=== PATIENT | female | born 1955 | race Asian ===

== ENCOUNTER → 2016-12-27 | Outpatient (CLI) | payer OTHER ==
[~2016-12-27] MED LIST: ASPI-482 PO; CHOL10003 PO; EZET1TAB5 PO; METF500T4 PO; MULT1TAB52 PO
[2016-12-27 10:10] LABS: BASO # 0.1 x10^3/uL (0.0-0.2); BASO % 1 % (0-3); EOS % 1 % (0-3); HEMATOCRIT 39.6 % (36.0-47.0); HEMOGLOBIN 12.9 g/dL (12.0-15.5); LYMPH # 1.8 x10^3/uL (1.0-4.8); LYMPH % 26 % (24-48); MEAN CORPUSCULAR HEMOGLOBIN 27 pg (25-35); MEAN CORPUSCULAR HGB CONC 33 g/dL (31-37); MEAN CORPUSCULAR VOLUME 82 fL (79-100); MONO % 7 % (0-9); NEUT % 65 % (31-73); PLATELET COUNT 273 x10^3/uL (140-400); RED BLOOD COUNT 4.81 x10^6/uL (3.50-5.40); RED CELL DISTRIBUTION WIDTH 14.3 % (11.5-14.5); WHITE BLOOD COUNT 7.2 x10^3/uL (4.0-11.0)
[2016-12-27 10:34] LABS: % SAT IRON 22 % (15-34); IRON,SERUM 91 ug/dL (50-170)
[2016-12-27 10:35] LABS: ALBUMIN 3.6 g/dL (3.4-5.0); ALBUMIN/GLOBULIN RATIO 0.9 (1.0-1.7); CALCIUM 9.1 mg/dL (8.5-10.1); CHOLESTEROL/HDL RATIO 3.3; CREATININE 0.8 mg/dL (0.6-1.0); GFR 72.7; POTASSIUM 4.3 mmol/L (3.5-5.1); TOTAL BILIRUBIN 0.4 mg/dL (0.2-1.0); TOTAL PROTEIN 7.7 g/dL (6.4-8.2)
[2016-12-27 10:40] LABS: FREE T4 1.02 ng/dL (0.76-1.46)
[2016-12-28 02:13] LABS: VITAMIN D25(OH)TOTAL 37.2 ng/mL (30.0-100.0)
== END | disposition home or self-care (01) ==
LOC: LAB 09:53
PROVIDERS: ATTEND Family Medicine
DX: Z00.00 Encounter for general adult medical examination without abnormal findings (principal); Z78.0 Asymptomatic menopausal state; E78.2 Mixed hyperlipidemia; R73.01 Impaired fasting glucose; D50.9 Iron deficiency anemia, unspecified; E55.9 Vitamin D deficiency, unspecified; Z82.49 Family history of ischemic heart disease and other diseases of the circulatory system; E01.0 Iodine-deficiency related diffuse (endemic) goiter
CPT/HCPCS: 36415; 80053; 80061; 82306; 83036; 83540; 83550; 84439; 84443; 85027; 86141

== ENCOUNTER → 2017-11-30 | Outpatient (CLI) | payer OTHER ==
[2017-11-30 07:24] LABS: ADD MAN DIFF? NO
[2017-11-30 07:41] LABS: BASO % 1 % (0-3); EOS # 0.2 x10^3/uL (0.0-0.7); EOS % 3 % (0-3); HEMATOCRIT 38.8 % (36.0-47.0); HEMOGLOBIN 12.6 g/dL (12.0-15.5); LYMPH % 29 % (24-48); MEAN CORPUSCULAR HEMOGLOBIN 27 pg (25-35); MEAN CORPUSCULAR HGB CONC 33 g/dL (31-37); MEAN CORPUSCULAR VOLUME 83 fL (79-100); MONO # 0.7 x10^3/uL (0.0-1.1); MONO % 10 % (0-9); NEUT % 58 % (31-73); PLATELET COUNT 255 x10^3/uL (140-400); RED BLOOD COUNT 4.67 x10^6/uL (3.50-5.40); RED CELL DISTRIBUTION WIDTH 14.3 % (11.5-14.5)
[2017-11-30 07:49] LABS: ALBUMIN 3.6 g/dL (3.4-5.0); ALBUMIN/GLOBULIN RATIO 0.9 (1.0-1.7); ALK PHOS 113 U/L (46-116); ALT (SGPT) 37 U/L (14-59); ANION GAP 9 (6-14); AST (SGOT) 27 U/L (15-37); BLOOD UREA NITROGEN 18 mg/dL (7-20); BUN/CREATININE RATIO 23 (6-20); CALCIUM 8.8 mg/dL (8.5-10.1); CARBON DIOXIDE 29 mmol/L (21-32); CHLORIDE 108 mmol/L (98-107); CHOLESTEROL 175 mg/dL (0-200); CREATININE 0.8 mg/dL (0.6-1.0); GFR 72.4; GLUCOSE 93 mg/dL (70-99); HDLC 50 mg/dL (40-60); LDLC 108 mg/dL (0-100); NON-HDL CHOLESTEROL 125 mg/dL (0-129); POTASSIUM 4.6 mmol/L (3.5-5.1); SODIUM 146 mmol/L (136-145); TOTAL BILIRUBIN 0.2 mg/dL (0.2-1.0); TOTAL PROTEIN 7.4 g/dL (6.4-8.2); TRIGLYCERIDES 85 mg/dL (0-150); VLDLC 17 mg/dL (0-40)
[2017-11-30 07:52] LABS: CHOLESTEROL/HDL RATIO 3.5
[2017-11-30 08:01] LABS: THYROID STIM HORMONE (TSH) 2.218 uIU/mL (0.358-3.74)
[2017-11-30 18:14] LABS: HEMOGLOBIN A1C 5.8 % (4.8-5.6)
== END | disposition home or self-care (01) ==
LOC: LAB 06:14
DX: Z00.01 Encounter for general adult medical examination with abnormal findings (principal); E78.5 Hyperlipidemia, unspecified; E55.9 Vitamin D deficiency, unspecified; R79.89 Other specified abnormal findings of blood chemistry
CPT/HCPCS: 36415; 80053; 80061; 82306; 83036; 84443; 85025

== ENCOUNTER → 2018-01-06 | Outpatient (CLI) | payer OTHER | END | disposition home or self-care (01) | LOC: MAMMO 15:05 | DX: Z12.31 Encounter for screening mammogram for malignant neoplasm of breast (principal) | CPT/HCPCS: 77063; 77067 ==

== ENCOUNTER → 2018-02-23 | Day surgery (SDC) | payer OTHER ==
[~2018-02-23] MED LIST changes: -ASPI-482 PO; -CHOL10003 PO; -EZET1TAB5 PO; +LIDOCAINE 1% PF 2 ML VIAL. ID; +LIDOCAINE 2% PF Vial for OR 5 ML VIAL.; -METF500T4 PO; +MORPHINE SULFATE 4 MG/ML DISP.SYRIN. IV; -MULT1TAB52 PO; +ONDANSETRON PF 4 MG/2 ML VIAL. IV; +PROCHLORPERAZINE 10 MG/2 ML VIAL. IV; +PROPOFOL 40 ML IV; +fentaNYL PF VIAL 100 MCG/2 ML VIAL IV
[2018-02-23] MEDS: IV RINGERS,LACTATED 1000ML 1,000 ML IV (09:44)
== END | disposition home or self-care (01) ==
LOC: ENDOS 09:08
DX: Z12.11 Encounter for screening for malignant neoplasm of colon (principal); K62.1 Rectal polyp; K64.0 First degree hemorrhoids
CPT/HCPCS: 45380; 88305; J2704

== ENCOUNTER → 2018-06-06 | Outpatient (CLI) | payer OTHER ==
[2018-06-06 09:56] LABS: CHOLESTEROL 195 mg/dL (0-200); CHOLESTEROL/HDL RATIO 4.1; HDLC 48 mg/dL (40-60); LDLC 119 mg/dL (0-100); NON-HDL CHOLESTEROL 147 mg/dL (0-129); TRIGLYCERIDES 141 mg/dL (0-150); VLDLC 28 mg/dL (0-40)
[2018-06-07 02:23] LABS: HEMOGLOBIN A1C 5.5 % (4.8-5.6)
== END | disposition home or self-care (01) ==
LOC: LAB 09:13
DX: E55.9 Vitamin D deficiency, unspecified (principal); E78.2 Mixed hyperlipidemia; E78.00 Pure hypercholesterolemia, unspecified; R73.03 Prediabetes; Z82.49 Family history of ischemic heart disease and other diseases of the circulatory system; Z86.2 Personal history of diseases of the blood and blood-forming organs and certain disorders involving the immune mechanism
CPT/HCPCS: 36415; 80061; 82306; 83036

== ENCOUNTER → 2019-01-08 | Outpatient (CLI) | payer OTHER ==
[2018-02-23 11:53] VITALS: BP 123/58
[~2019-01-08] MED LIST changes: +ASPI-482 PO; +CHOL10003 PO; +EZET1TAB35 PO; -LIDOCAINE 1% PF 2 ML VIAL. ID; -LIDOCAINE 2% PF Vial for OR 5 ML VIAL.; +METF500T16 PO; -MORPHINE SULFATE 4 MG/ML DISP.SYRIN. IV; +MULT1TAB52 PO; -ONDANSETRON PF 4 MG/2 ML VIAL. IV; -PROCHLORPERAZINE 10 MG/2 ML VIAL. IV; -PROPOFOL 40 ML IV; -fentaNYL PF VIAL 100 MCG/2 ML VIAL IV
[2019-01-08 12:40] LABS: ALBUMIN 3.7 g/dL (3.4-5.0); ALBUMIN/GLOBULIN RATIO 1.1 (1.0-1.7); CALCIUM 8.8 mg/dL (8.5-10.1); CHOLESTEROL/HDL RATIO 3.1; CREATININE 0.8 mg/dL (0.6-1.0); GFR 72.2; POTASSIUM 4.3 mmol/L (3.5-5.1); TOTAL BILIRUBIN 0.4 mg/dL (0.2-1.0)
--- NOTE | 2019-01-08 14:22 | RAD ---
DATE: 01/08/2019 4:00 PM EXAM: MAMMO KILEY SCREENING BILATERAL HISTORY: routine screening evaluation. COMPARISON: Prior mammographic imaging dating back to 12/11/2015 Bilateral CC and MLO views of the breasts were performed. Bilateral breast tomosynthesis was performed in CC and MLO projections. This study was interpreted with the benefit of Computerized Aided Detection (CAD ). Breast Density: The breast parenchyma shows scattered fibroglandular densities. Breast parenchyma level B. FINDINGS: Benign calcifications are present. The parenchymal pattern appears stable. No suspicious masses, microcalcifications or architectural distortion is present to suggest malignancy in either breast. The visualized axillae are unremarkable. IMPRESSION: No mammographic evidence of malignancy. BI-RADS CATEGORY: 1 NEGATIVE RECOMMENDED FOLLOW-UP: 12M 12 MONTH FOLLOW-UP Annual screening mammography is recommended, unless clinically indicated sooner based on symptoms or change in physical exam. PQRS compliance statement: Patient information was entered into a reminder system with a target due date 01/10/2020 for the next mammogram. Mammography is a sensitive method for finding small breast cancers, but it does not detect them all and is not a substitute for careful clinical examination. A negative mammogram does not negate a clinically suspicious finding and should not result in delay in biopsying a clinically suspicious abnormality. "Our facility is accredited by the [employer] Mammography Program." ILIANAD
== END | disposition home or self-care (01) ==
LOC: MAMMO 10:40
DX: Z12.31 Encounter for screening mammogram for malignant neoplasm of breast (principal)
CPT/HCPCS: 36415; 77063; 77067; 80053; 80061; 83036

== ENCOUNTER → 2019-08-14 | Outpatient (CLI) | payer OTHER ==
[2018-02-23 11:53] VITALS: BP 123/58
--- NOTE | 2019-08-14 16:31 | RAD ---
Cervical spine radiograph 08/14/2019 12:00 AM INDICATION: Cervical radiculopathy COMPARISON: None available. TECHNIQUE: Lateral, bilateral obliques, AP and odontoid views of the cervical spine are provided. FINDINGS: The cervical spine is visualized from the craniocervical junction through the cervicothoracic junction. Alignment of the cervical spine is normal. No acute fracture is visualized. Bone mineralization is within normal limits. Disc heights are maintained. There is no prevertebral soft tissue swelling. Partial facet fusion at C2-C3. No significant facet arthropathy. No significant uncovertebral joint disease. There is no osseous spinal canal stenosis. The lateral masses of C1 articulate appropriately with the C2 vertebral body. IMPRESSION: No acute fracture or malalignment of the cervical spine. Electronically signed by: Litzy Franco MD (08/14/2019 4:28 PM) [facility]
== END | disposition home or self-care (01) ==
LOC: RAD 13:15
PROVIDERS: ATTEND Student in an Organized Health Care Education/Training Program
DX: M54.12 Radiculopathy, cervical region (principal)
CPT/HCPCS: 72050

== ENCOUNTER 2019-10-07 18:52 | Inpatient (IN) | payer OTHER ==
[~2019-10-07] VITALS: Ht 160 cm; Wt 63.1 kg
[2019-10-07] MEDS ORDERED: ASPIRIN CHEWABLE 81 MG TABLET. PO ONE (19:30)
--- NOTE | 2019-10-07 19:39 | PHYS DOC ---
Past Medical History Past Medical History: High Cholesterol Additional Past Medical Histor: PRE DIABETIC Alcohol Use: None Drug Use: None Adult General Chief Complaint Chief Complaint: Palpitations HPI HPI 63-year-old female past medical history of hypertension presents to the emergency department with complaints of palpitations. Patient states on Tuesday she had similar episodes of palpitations, dizziness. She was actually with family and her brother is a physician he took her blood pressure at that time of which was elevated they subsequently started her on hydrochlorothiazide. She states today around 4:30 she developed similar symptoms palpitations, dizziness, shortness of breath difficulty catching her breath. She states it lasted approximately one hour. Nothing makes worse, nothing makes better. Review of Systems Review of Systems Constitutional: Denies fever or chills [] Respiratory: Denies cough or shortness of breath [] Cardiovascular: No additional information not addressed in HPI, palpitations [] GI: Denies abdominal pain, nausea, vomiting, bloody stools or diarrhea [] : Denies dysuria or hematuria [] Integument: Denies rash or skin lesions [] Neurologic: Denies headache, focal weakness or sensory changes [] All other systems were reviewed and found to be within normal limits, except as documented in this note. Current Medications Current Medications Current Medications Medications (Trade) Dose Ordered Sig/Anika Start Time Stop Time Status Last Admin Dose Admin Aspirin (Children'S Aspirin) 324 mg 1X ONCE 10/07/19 19:30 10/07/19 19:33 DC 10/07/19 19:52 324 MG Allergies Allergies Allergies Coded Allergies Type Severity Reaction Last Updated Verified No Known Drug Allergies 02/23/18 No Physical Exam Physical Exam Constitutional: Well developed, well nourished, no acute distress, non-toxic appearance. [] HENT: Normocephalic, atraumatic, bilateral external ears normal, oropharynx moist, no oral exudates, nose normal. [] Eyes: PERRLA, EOMI, conjunctiva normal, no discharge. [] Cardiovascular:Heart rate regular rhythm, no murmur [] Lungs & Thorax: Bilateral breath sounds clear to auscultation [] Abdomen: Bowel sounds normal, soft, no tenderness, no masses, no pulsatile masses. [] Skin: Warm, dry, no erythema, no rash. [] Back: No tenderness, no CVA tenderness. [] Extremities: No tenderness, o edema. [] Neurologic: Alert and oriented X 3, no focal deficits noted. [] Psychologic: Affect normal, judgement normal, mood normal. [] Current Patient Data Vital Signs Vital Signs Date Time Temp Pulse Resp B/P (MAP) Pulse Ox O2 Delivery O2 Flow Rate FiO2 10/07/19 20:35 86 18 151/62 (91) 100 Room Air 10/07/19 19:00 98.0 98.0 Lab Values Laboratory Tests Test 10/07/19 20:00 White Blood Count 8.0 x10^3/uL (4.0-11.0) Red Blood Count 4.63 x10^6/uL (3.50-5.40) Hemoglobin 13.1 g/dL (12.0-15.5) Hematocrit 38.9 % (36.0-47.0) Mean Corpuscular Volume 84 fL (79-100) Mean Corpuscular Hemoglobin 28 pg (25-35) Mean Corpuscular Hemoglobin Concent 34 g/dL (31-37) Red Cell Distribution Width 14.5 % (11.5-14.5) Platelet Count 297 x10^3/uL (140-400) Neutrophils (%) (Auto) 71 % (31-73) Lymphocytes (%) (Auto) 18 % (24-48) L Monocytes (%) (Auto) 8 % (0-9) Eosinophils (%) (Auto) 2 % (0-3) Basophils (%) (Auto) 0 % (0-3) Neutrophils # (Auto) 5.7 x10^3/uL (1.8-7.7) Lymphocytes # (Auto) 1.5 x10^3/uL (1.0-4.8) Monocytes # (Auto) 0.7 x10^3/uL (0.0-1.1) Eosinophils # (Auto) 0.1 x10^3/uL (0.0-0.7) Basophils # (Auto) 0.0 x10^3/uL (0.0-0.2) D-Dimer (Makayla) 1.13 ug/mlFEU (0.00-0.50) H Sodium Level 138 mmol/L (136-145) Potassium Level 3.3 mmol/L (3.5-5.1) L Chloride Level 100 mmol/L (98-107) Carbon Dioxide Level 31 mmol/L (21-32) Anion Gap 7 (6-14) Blood Urea Nitrogen 14 mg/dL (7-20) Creatinine 0.8 mg/dL (0.6-1.0) Estimated GFR (Cockcroft-Gault) 72.2 BUN/Creatinine Ratio 18 (6-20) Glucose Level 118 mg/dL (70-99) H Calcium Level 9.0 mg/dL (8.5-10.1) Magnesium Level 4.9 mg/dL (1.8-2.4) H Total Bilirubin 0.2 mg/dL (0.2-1.0) Aspartate Amino Transferase (AST) 24 U/L (15-37) Alanine Aminotransferase (ALT) 28 U/L (14-59) Alkaline Phosphatase 130 U/L (46-116) H Troponin I Quantitative < 0.017 ng/mL (0.000-0.055) VE-Bhb-X-Type Natriuretic Peptide 28 pg/mL (0-124) Total Protein 7.7 g/dL (6.4-8.2) Albumin 3.7 g/dL (3.4-5.0) Albumin/Globulin Ratio 0.9 (1.0-1.7) L Thyroid Stimulating Hormone (TSH) 1.671 uIU/mL (0.358-3.74) Laboratory Tests 10/07/19 20:00 Laboratory Tests 10/07/19 20:00 EKG EKG EKG reviewed, no evidence of ST elevation GA, sinus tachycardia, normal axis, interpretation time 1908[] Radiology/Procedures Radiology/Procedures [] Course & Med Decision Making Course & Med Decision Making Pertinent Labs and Imaging studies reviewed. (See chart for details) []63-year-old female past medical history of hypertension presents to the emergency department with complaints of palpitations. Patient states on Tuesday she had similar episodes of palpitations, dizziness. She was actually with family and her brother is a physician he took her blood pressure at that time of which was elevated they subsequently started her on hydrochlorothiazide. She states today around 4:30 she developed similar symptoms palpitations, dizziness, shortness of breath difficulty catching her breath. She states it lasted approximately one hour. Nothing makes worse, nothing makes better. Labs reviewed - ddimer elevated CT chest pending Given patient's history of recurrent palpitations, dizziness and SOB will admit with further Cardiology eval and monitoring to rule out arrhythmia/CAD Discussed findings with patient at bedside Madi Disclaimer Dragon Disclaimer This electronic medical record was generated, in whole or in part, using a voice recognition dictation system. Departure Departure Impression: Primary Impression: Palpitations Additional Impressions: Chest pain Hypermagnesemia Elevated troponin Disposition: ADMITTED INPATIENT Admitting Physician: HIMTatianna Condition: STABLE Referrals: COLE PRICE DO (PCP) The HEART Score for CP Pts HEART Score for Chest Pain: HEART Score for Chest Pain Response (Comments) Value History Slighlty/Non-Suspicious 0 ECG Normal 0 Age >45 - < 65 1 Risk Factors 1 or 2 Risk Factors 1 Troponin < Normal Limit 0 Total 2 Risk Factors: Risk Factors: DM, Current or recent (<one month) smoker, HTN, HLP, family history of CAD, obesity. Risk Scores: Score 0 - 3: 2.5% MACE over next 6 weeks - Discharge Home Score 4 - 6: 20.3% MACE over next 6 weeks - Admit for Clinical Observation Score 7 - 10: 72.7% MACE over next 6 weeks - Early Invasive Strategies Problem Qualifiers Additional Impressions: Chest pain Chest pain type: unspecified Qualified Codes: R07.9 - Chest pain, unspecified ASHVIN SMITH MD Oct 07, 2019 19:39
[2019-10-07 20:15] LABS: BASO % 0 % (0-3); EOS # 0.1 x10^3/uL (0.0-0.7); EOS % 2 % (0-3); HEMATOCRIT 38.9 % (36.0-47.0); HEMOGLOBIN 13.1 g/dL (12.0-15.5); LYMPH # 1.5 x10^3/uL (1.0-4.8); LYMPH % 18 % (24-48); MEAN CORPUSCULAR HEMOGLOBIN 28 pg (25-35); MEAN CORPUSCULAR HGB CONC 34 g/dL (31-37); MEAN CORPUSCULAR VOLUME 84 fL (79-100); MONO # 0.7 x10^3/uL (0.0-1.1); MONO % 8 % (0-9); NEUT # 5.7 x10^3/uL (1.8-7.7); NEUT % 71 % (31-73); PLATELET COUNT 297 x10^3/uL (140-400); RED BLOOD COUNT 4.63 x10^6/uL (3.50-5.40); RED CELL DISTRIBUTION WIDTH 14.5 % (11.5-14.5)
[2019-10-07 20:25] LABS: CREATININE 0.8 mg/dL (0.6-1.0); GFR 72.2; POTASSIUM 3.3 mmol/L (3.5-5.1)
[2019-10-07 20:31] LABS: ALBUMIN 3.7 g/dL (3.4-5.0); ALBUMIN/GLOBULIN RATIO 0.9 (1.0-1.7); MAGNESIUM 4.9 mg/dL (1.8-2.4); TOTAL BILIRUBIN 0.2 mg/dL (0.2-1.0); TOTAL PROTEIN 7.7 g/dL (6.4-8.2)
--- NOTE | 2019-10-07 20:32 | RAD ---
PORTABLE CHEST 1V History: Palpitations Comparison: December 09, 2011 Findings: Single view of the chest is submitted. There is no infiltrate, pneumothorax, or effusion. The pericardial cardiac silhouette is within normal limits in size. There is some atherosclerotic calcification near aortic arch. Impression: 1. There is no radiographic evidence of acute cardiopulmonary disease. Electronically signed by: Ladarius Lemus MD (10/07/2019 8:29 PM) [facility]
[2019-10-07] MEDS ORDERED: ONDANSETRON PF 4 MG/2 ML VIAL. IV PRN (21:15)
[2019-10-07] MEDS ORDERED: NITROGLYCERIN SUBLINGUAL 0.4 MG BOTTLE OF 25. SL PRN (21:15)
[2019-10-07] MEDS ORDERED: IOHEXOL 350 MG/ML 100 ML VIAL. IV ONE (21:30)
[2019-10-07] MEDS ORDERED: CONTRAST GIVEN. MC PRN (21:30)
--- NOTE | 2019-10-07 22:15 | RAD ---
CT angiography chest with contrast PQRS statement: CT scans at this facility use dose reduction including either automated exposure control, iterative reconstructions, and /or weight based radiation dosing via mA and kV modification when appropriate to reduce radiation dose to as low as reasonably achievable. HISTORY: Elevated d-dimer, shortness of breath and palpitations. TECHNIQUE: CT imaging the chest with 3-D MIP. Check is of the pulmonary arteries to assess for emboli with 100 mL Omnipaque 350 intravenous contrast. FINDINGS: Calcified plaque thoracic aorta. Heart size normal. No pulmonary artery emboli. No adenopathy in the chest. Esophagus unremarkable. Medial basilar subpleural right lower lobe 6 cm solid nodule image 94. No pneumothorax, pulmonary opacities or pleural effusions. Anterior right sixth rib not distracted fracture with bony sclerosis.. IMPRESSION: 1. No pulmonary artery emboli. 2. 6 mm solid pulmonary nodule right lower lobe. Per Fleischner guidelines follow-up CT imaging in 6-12 months is advised for this nodule. 3. Anterior right fifth rib traumatic fracture with mild bony sclerosis could represent a subacute traumatic fracture. Electronically signed by: Donell Thompson MD (10/07/2019 10:12 PM) [id number]
[2019-10-07 22:45] VITALS: BP 136/53
[2019-10-08] VITALS (8 sets, daily range): BP systolic 94–132; BP diastolic 49–75
[2019-10-08 04:08] LABS: BASO % 1 % (0-3); EOS # 0.2 x10^3/uL (0.0-0.7); EOS % 3 % (0-3); HEMATOCRIT 37.9 % (36.0-47.0); HEMOGLOBIN 12.6 g/dL (12.0-15.5); LYMPH # 2.1 x10^3/uL (1.0-4.8); LYMPH % 28 % (24-48); MEAN CORPUSCULAR HEMOGLOBIN 28 pg (25-35); MEAN CORPUSCULAR HGB CONC 33 g/dL (31-37); MEAN CORPUSCULAR VOLUME 84 fL (79-100); MONO # 0.7 x10^3/uL (0.0-1.1); MONO % 9 % (0-9); NEUT # 4.3 x10^3/uL (1.8-7.7); NEUT % 59 % (31-73); PLATELET COUNT 280 x10^3/uL (140-400); RED BLOOD COUNT 4.52 x10^6/uL (3.50-5.40); RED CELL DISTRIBUTION WIDTH 14.5 % (11.5-14.5); WHITE BLOOD COUNT 7.3 x10^3/uL (4.0-11.0)
[2019-10-08 04:21] LABS: ALBUMIN 3.4 g/dL (3.4-5.0); ALBUMIN/GLOBULIN RATIO 1.1 (1.0-1.7); CALCIUM 8.8 mg/dL (8.5-10.1); CREATININE 0.9 mg/dL (0.6-1.0); POTASSIUM 3.2 mmol/L (3.5-5.1); TOTAL BILIRUBIN 0.3 mg/dL (0.2-1.0); TOTAL PROTEIN 6.6 g/dL (6.4-8.2)
--- NOTE | 2019-10-08 07:29 | EKG ---
[facility] [address] [place] [address] Test Date: 2019-10-07 Test Time: 19:09:12 Pat Name: CATRINA CORDERO Department: Room: [facility] Gender: F Investment Trader: : 1955 Requested By: ASHVIN SMITH Order Number: [id number] Reading MD: Gregor Foley MD Measurements Intervals [place] Rate: 109 P: 47 CA: 126 QRS: 25 QRSD: 82 T: 24 QT: 338 QTc: 457 Interpretive Statements SINUS TACHYCARDIA Electronically Signed On 10-08-2019 12:35:59 [employer]ING [employer] by Gregor Foley MD
--- NOTE | 2019-10-08 11:14 | PDOC2 ---
RUSSELL BATRES SUSTAINMENT LOGISTICS ANALYST 10/08/19 1114: CARDIAC CONSULT DATE OF CONSULT Date of Consult DATE: 10/08/19 TIME: 09:10 REASON FOR CONSULT Reason for Consult: Palpitations, chest pain REFERRING PHYSICIAN Referring Physician: Dr. Schwartz SOURCE Source: Chart review, Patient HISTORY OF PRESENT ILLNESS HISTORY OF PRESENT ILLNESS This is a 63 yo female, who is employed here as a respiratory therapist, who presented secondary to chest pain and palpitations. Reports intermittent dizziness since last Tuesday, especially upon standing. Blood pressure was more elevated that usual this past week as well. Discussed with brother who is a mortgage loan processor. Was started on HCTZ 25mg, which seemed to improved blood pressure. Yesterday, began experiencing some palpitations in her central chest. [place] as if her heart was beating fast. Was slightly dizzy. Blood pressure was again elevated. Was concerned about a possible stroke so she came to the ED for further evaluation and treatment. No diphoresis, SOA, or nausea/vomiting. PAST MEDICAL HISTORY Cardiovascular: Hyperlipidemia PAST SURGICAL HISTORY Past Surgical History: Tonsillectomy, Hysterectomy FAMILY HISTORY Family History: Coronary Artery Disease (father ) SOCIAL HISTORY Smoke: No ALCOHOL: none Drugs: None Lives: with Family CURRENT MEDICATIONS CURRENT MEDICATIONS Current Medications Medications (Trade) Dose Ordered Sig/Anika Route PRN Reason Start Time Stop Time Status Last Admin Dose Admin Aspirin (Children'S Aspirin) 324 mg 1X ONCE PO 10/07/19 19:30 10/07/19 19:33 DC 10/07/19 19:52 Iohexol (Omnipaque 350 Mg/ml) 100 ml 1X ONCE IV 10/07/19 21:30 10/07/19 21:31 DC 10/07/19 21:58 ALLERGIES ALLERGIES: Coded Allergies: No Known Drug Allergies (Unverified , 02/23/18) ROS Review of System 14 point ROS conducted with pertinent positives noted above in hPI. PHYSICAL EXAM General: Alert, Oriented X3, Cooperative, No acute distress HEENT: Atraumatic, Mucous membr. moist/pink Lungs: Clear to auscultation, Normal air movement Heart: Regular rate, Normal S1, Normal S2, No murmurs Abdomen: Normal bowel sounds, Soft, No tenderness Extremities: No edema, Normal pulses Skin: No breakdown, No significant lesion Neuro: Normal speech, Sensation intact Psych/Mental Status: Mental status NL, Mood NL MUSCULOSKELETAL: Osteoarthritic changes both hands VITALS/I&O VITALS/I&O: Vital Signs Date Time Temp Pulse Resp B/P (MAP) Pulse Ox O2 Delivery O2 Flow Rate FiO2 10/08/19 08:00 Room Air 10/08/19 07:00 97.6 69 16 94/49 (64) 98 97.6 I & O 10/07/19 10/08/19 10/08/19 17:00 01:00 09:00 Intake Total 100 ml Balance 100 ml LABS Lab: Laboratory Tests Test 10/07/19 20:00 10/08/19 01:45 10/08/19 03:30 White Blood Count 8.0 x10^3/uL (4.0-11.0) 7.3 x10^3/uL (4.0-11.0) Red Blood Count 4.63 x10^6/uL (3.50-5.40) 4.52 x10^6/uL (3.50-5.40) Hemoglobin 13.1 g/dL (12.0-15.5) 12.6 g/dL (12.0-15.5) Hematocrit 38.9 % (36.0-47.0) 37.9 % (36.0-47.0) Mean Corpuscular Volume 84 fL (79-100) 84 fL (79-100) Mean Corpuscular Hemoglobin 28 pg (25-35) 28 pg (25-35) Mean Corpuscular Hemoglobin Concent 34 g/dL (31-37) 33 g/dL (31-37) Red Cell Distribution Width 14.5 % (11.5-14.5) 14.5 % (11.5-14.5) Platelet Count 297 x10^3/uL (140-400) 280 x10^3/uL (140-400) Neutrophils (%) (Auto) 71 % (31-73) 59 % (31-73) Lymphocytes (%) (Auto) 18 % (24-48) L 28 % (24-48) Monocytes (%) (Auto) 8 % (0-9) 9 % (0-9) Eosinophils (%) (Auto) 2 % (0-3) 3 % (0-3) Basophils (%) (Auto) 0 % (0-3) 1 % (0-3) Neutrophils # (Auto) 5.7 x10^3/uL (1.8-7.7) 4.3 x10^3/uL (1.8-7.7) Lymphocytes # (Auto) 1.5 x10^3/uL (1.0-4.8) 2.1 x10^3/uL (1.0-4.8) Monocytes # (Auto) 0.7 x10^3/uL (0.0-1.1) 0.7 x10^3/uL (0.0-1.1) Eosinophils # (Auto) 0.1 x10^3/uL (0.0-0.7) 0.2 x10^3/uL (0.0-0.7) Basophils # (Auto) 0.0 x10^3/uL (0.0-0.2) 0.0 x10^3/uL (0.0-0.2) D-Dimer (Makayla) 1.13 ug/mlFEU (0.00-0.50) H Sodium Level 138 mmol/L (136-145) 140 mmol/L (136-145) Potassium Level 3.3 mmol/L (3.5-5.1) L 3.2 mmol/L (3.5-5.1) L Chloride Level 100 mmol/L (98-107) 103 mmol/L (98-107) Carbon Dioxide Level 31 mmol/L (21-32) 29 mmol/L (21-32) Anion Gap 7 (6-14) 8 (6-14) Blood Urea Nitrogen 14 mg/dL (7-20) 13 mg/dL (7-20) Creatinine 0.8 mg/dL (0.6-1.0) 0.9 mg/dL (0.6-1.0) Estimated GFR (Cockcroft-Gault) 72.2 63.0 BUN/Creatinine Ratio 18 (6-20) 14 (6-20) Glucose Level 118 mg/dL (70-99) H 95 mg/dL (70-99) Calcium Level 9.0 mg/dL (8.5-10.1) 8.8 mg/dL (8.5-10.1) Magnesium Level 4.9 mg/dL (1.8-2.4) H Total Bilirubin 0.2 mg/dL (0.2-1.0) 0.3 mg/dL (0.2-1.0) Aspartate Amino Transferase (AST) 24 U/L (15-37) 21 U/L (15-37) Alanine Aminotransferase (ALT) 28 U/L (14-59) 28 U/L (14-59) Alkaline Phosphatase 130 U/L (46-116) H 113 U/L (46-116) Troponin I Quantitative < 0.017 ng/mL (0.000-0.055) < 0.017 ng/mL (0.000-0.055) < 0.017 ng/mL (0.000-0.055) PO-Nhv-R-Type Natriuretic Peptide 28 pg/mL (0-124) Total Protein 7.7 g/dL (6.4-8.2) 6.6 g/dL (6.4-8.2) Albumin 3.7 g/dL (3.4-5.0) 3.4 g/dL (3.4-5.0) Albumin/Globulin Ratio 0.9 (1.0-1.7) L 1.1 (1.0-1.7) Thyroid Stimulating Hormone (TSH) 1.671 uIU/mL (0.358-3.74) Free Thyroxine 1.03 ng/dL (0.76-1.46) Laboratory Tests 10/07/19 20:00 10/08/19 01:45 Laboratory Tests 10/07/19 20:00 10/08/19 01:45 ASSESSMENT/PLAN ASSESSMENT/PLAN 1. Chest pain, palpitations. AMI ruled out. 2. Dizziness; intermittent x 1 week. No acute events on tele thus far 3. Hypertension; now well controlled without therapy 4. Hyperlipidemia statin therapy 5. Hypokalemia Recommendations Orthostatics Check Mg- replace as warranted Echo to assess LV systolic function Lipids, TSH Consider outpatient event monitor KELTON VERNON MD 10/09/19 1024: CARDIAC CONSULT ASSESSMENT/PLAN ASSESSMENT/PLAN Late entry for October 08, 2019 Patient seen and examined. Agree with above nurse practitioner note. 63-year-old woman well known to us as she works as a respiratory therapist here [place]. She presented initially with headaches and ultimately was diagnosed by her brother is a physician as having hypertension. She was started on hydrochlorothiazide and was titrated up to a 50 mg dose but due to persistent headaches, palpitations and overall dizziness/fatigue she presented to the hospital. Initial evaluation including cardiac enzymes and a CT scan for pulmonary embolus are negative. Her blood pressures are a little bit labile and low in the morning and more elevated in the afternoon and evening time. Her examination is unremarkable Her EKG is unremarkable We will plan on stopping her hydrochlorothiazide and initiating on amlodipine. I discussed the plan for blood pressure change and a event recorder for ruling out any significant arrhythmias with the patient and her [id number] who is a physician at the request of the patient Thanks. RUSSELL BATRES APRN Oct 08, 2019 11:14 KELTON VERNON MD Oct 09, 2019 10:24
[2019-10-08] MEDS: ASPIRIN ENTERIC COATED 81 MG TABLET.DR. PO SCH (11:53)
[2019-10-08] MEDS: EZETIMIBE 10 MG TABLET. PO SCH (11:53)
[2019-10-08] MEDS: CHOLECALCIFEROL (VITAMIN D3) 1,000 UNIT TABLET PO SCH (11:53)
[2019-10-08] MEDS: MULTIVITAMIN with MINERAL TABLET. PO SCH (11:53)
[2019-10-08 11:54] LABS: CHOLESTEROL/HDL RATIO 4.4
--- NOTE | 2019-10-08 12:20 | HP ---
ADMIT DATE: 10/07/2019 CHIEF COMPLAINT: Chest pain, palpitations, dizziness, vague headache, elevated blood pressure. 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 She used to work in [employer] [place]. Basically, she presented to the ER with the above chief complaint. She has been having palpitations and vague chest pain. She was also dizzy. States she just does not feel herself. She has several family members who were also physicians, one of them started her on blood pressure pill of hydrochlorothiazide. Yesterday at 4:30, she developed more symptoms. She actually had shortness of breath as well, rated at 7/10 with associated anxiety, worse with moving, better with sitting still described as irritating. I discussed the case with ER physician. We have admitted the patient. I also talked to her son on the phone. He is an intensive care physician. We are going to do multiple step workup. Please see the plan below. PAST MEDICAL HISTORY: Hyperlipidemia, prediabetic. ALLERGIES: None. FAMILY HISTORY: Coronary artery disease and sudden cardiac . SOCIAL HISTORY: She does not drink, smoke or take drugs. 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 MEDICATIONS: Reviewed, please refer to the MRAD. She is on metformin, which she states she really has not been taking as prescribed and I cannot agree with that. Vytorin, aspirin. REVIEW OF SYSTEMS: GENERAL: No history of weight change, weakness or fevers. SKIN: No bruising, hair changes or rashes. EYES: No blurred, double or loss of vision. NOSE AND THROAT: No history of nosebleeds, hoarseness or sore throat. CARDIAC: She complains of chest pain and palpitations. LUNGS: Denies cough, hemoptysis, wheezing or shortness of breath. GASTROINTESTINAL: Denies changes in appetite, nausea, vomiting, diarrhea or constipation. GENITOURINARY: No history of frequency, urgency, hesitancy or nocturia. NEUROLOGIC: Denies history of numbness, tingling, tremor or weakness. NEUROLOGICAL: She complains of weakness and a vague headache and just not feeling herself and some dizziness. PSYCHIATRIC: No history of panic, anxiety or depression. ENDOCRINE: No history of heat or cold intolerance, polyuria or polydipsia. EXTREMITIES: Denies muscle weakness, joint pain, pain on walking or stiffness. PHYSICAL EXAMINATION: VITAL SIGNS: Temperature is currently 97.6, pulse 70, respirations 18, blood pressure is down to 94/49. It was as high as 174/77. GENERAL: She is alert, cooperative, pleasant, somewhat anxious, although she denies that. HEENT: Normal cephalic atraumatic, external auditory canals are patent EYES: Extraocular muscles are intact, pupils are equally round and reactive to light and accommodation MUSCULOSKELETAL: Well developed, well nourished, good range of motion ENDOCRINE: No thyromegaly was palpated LYMPHATICS: No cervical chain or axillary nodes were noted HEMATOPOIETIC: No bruising NECK: Supple, no JVD, no thyromegaly was noted. LUNGS: Clear to auscultation. HEART: Distant S1, S2. ABDOMEN: Soft, nontender. EXTREMITIES: No edema. NEUROLOGIC: Normal speech, normal tone. A & O x3, moves all extremities, no obvious focal deficits. PSYCHIATRIC: She seems a little anxious. SKIN: No ulcerations or rashes, good skin turgor, no jaundice. VASCULAR: Good capillary refill, neurovascular bundle appears to be intact. LABORATORY DATA: White count 8, hemoglobin 13, platelets 297. Electrolytes: Sodium 140, potassium 3.2, chloride 103, bicarbonate 29, BUN 13, creatinine 0.9, glucose 95. Troponin is 0, we repeated it is 0 again. Her TSH is normal at 1.6. Her free T4 is normal at 1.03. CT angiography showed no pulmonary emboli. There was a 6 mm pulmonary nodule in the right lower lobe. There is also an anterior right 5th rib fracture with mild bony sclerosis could represent a subacute traumatic fracture. Chest x-ray shows no acute disease. ASSESSMENT AND PLAN: Chest pain and neurologic symptoms and hypertensive urgency. The patient has been admitted. We are consulting Neurology and Cardiology. We are going to check an echo. I called Interventional Radiology to see what would be the best way to image the carotids and vertebral arteries. They suggested CT angiography so I am going to order that. MRI of the brain, consult Neurology. We are going to resume her home meds, but discontinue her metformin. Home meds, DVT prophylaxis. Full code. Lipid panel, p.r.n. casi [place]. Serial enzymes, serial EKGs, daily aspirin. SALTY DAS DO DR: LORENA/shira JOB#: [id number] / [id number]
[2019-10-08] MEDS ORDERED: CONTRAST GIVEN. MC PRN (13:45)
[2019-10-08] MEDS ORDERED: IOHEXOL 350 MG/ML 100 ML VIAL. IV ONE (13:45)
--- NOTE | 2019-10-08 14:20 | CONS ---
DATE OF CONSULTATION: PULMONARY CONSULTATION ATTENDING PHYSICIAN: Dr. Espitia. REASON FOR CONSULTATION: Lung nodule. HISTORY OF PRESENT ILLNESS: The patient is a 63-year-old female, who is very known to us. She works as a respiratory therapist. She was hospitalized as she was complaining of dizziness. It was related to her hypertension and she has been started on antihypertensive medication. I have been asked to see her for further evaluation due to her abnormal CT chest. I have reviewed CT of the chest. There was no evidence of pulmonary emboli. There is a tiny 6 mm pulmonary nodule in the right lower lobe posteromedially. There were no old scans available for comparison. From her history, she said she has been getting regular mammograms and there was no abnormality and also had a screening colonoscopy last year with no abnormality. PAST MEDICAL HISTORY: History of hyperlipidemia and prediabetes. PAST SURGICAL HISTORY: No recent surgeries. ALLERGIES: None. MEDICATIONS: Reviewed as listed in the MRAD. REVIEW OF SYSTEMS: Twelve-point system obtained. Pertinent positives discussed in my history of present illness, otherwise noncontributory. All systems that were negative were reviewed as well. SOCIAL HISTORY: Nonsmoker. No known cancer. PHYSICAL EXAMINATION: VITAL SIGNS: Reviewed. Blood pressure is stable now 110/70. Pulse oximetry 96% on room air, afebrile. NECK: Supple. LUNGS: With fine crackles at right base. CARDIOVASCULAR: Regular rate and rhythm. ABDOMEN: Soft, nontender. EXTREMITIES: With no pitting edema. LABORATORY DATA: Reviewed. White cell count 7.3, hemoglobin 12.6 and platelets are 280. IMPRESSION: 1. Tiny 6 mm nodule in the right lower lobe posteromedially. This is a patient who has never smoked cigarettes and has no known malignancies. She has regular mammograms which were negative per her history and also had a screening colonoscopy, which was negative as well. Likely, this is noncalcified granuloma. I would recommend repeating a CAT scan in about 8 months from now. 2. Hypertensive urgency, now being improved. RECOMMENDATIONS: 1. Discussed with the patient. At this point, she can have a CT chest to through her primary care or through our office. I would recommend repeating one in 8 months from now and if that remain stable, then there would be another one over a year and if we have 2 years of stability on the nodule, then she would not need any further followups. I have given my office number and she can contact me to schedule appointment if needed. ADENIKE WELLS MD DR: BRANDON/shira JOB#: [id number] / [id number] KVNG
--- NOTE | 2019-10-08 14:44 | RAD ---
EXAM: Carotid Doppler sonogram. HISTORY: Dizziness and fluctuating blood pressure. TECHNIQUE: Brown scale and color Doppler sonographic evaluation of the neck with spectral waveform analysis was performed and static images are submitted for review. FINDINGS: The peak systolic velocity within the right common carotid artery is 105 cm/sec. The peak systolic velocity within the right internal carotid artery is 102 cm/sec and the end diastolic velocity within the right internal carotid artery is 30 cm/sec. The right ICA/CCA ratio is 0.97. The peak systolic velocity within the left common carotid artery is 130 cm/sec. The peak systolic velocity within the left internal carotid artery is 106 cm/sec and the end diastolic velocity within the left internal carotid artery is 38 cm/sec. The left ICA/CCA ratio is 1.08. There is normal antegrade flow within both vertebral arteries. IMPRESSION: No Doppler evidence of hemodynamically significant stenosis within the internal carotid or vertebral arteries. PQRS Compliance Statement - Stenosis calculations for CT, MR and conventional angiography are based upon measurement of the distal ICA diameter in accordance with the NASCET methodology. Stenosis calculations for carotid ultrasound studies are derived from validated velocity criteria which are known to correlate with the NASCET methodology. Electronically signed by: Sameera Rollins MD (10/08/2019 2:41 PM) [place] [id number]
--- NOTE | 2019-10-08 15:38 | NUR ---
SW following pt for dc planning. Chart reviewed and discussed with RN. 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 Pulmonary and Cardiology following. No SW needs identified at this time. SW will be available as needed.
--- NOTE | 2019-10-08 16:08 | PDOC2 ---
NEUROLOGY CONSULT Date of Admission Date of Admission DATE: 10/08/19 TIME: 15:59 Reason for Consult Reason for Consult: IMPRESSION: Dizziness. Light headiness. Visual disturbances. Palpitation. Hypertensive events. HTN. Hypotensive events. Subacute right 5th rib fracture. Right LL 6 mm nodule. RECOMMENDATIONS/PLAN: ASA daily. Zicor HS. Brain MRI. CTA ordered by floor team. Lab: see orders. Treat medical diseases. HISTORY OF PRESENT ILLNESS This is a 63-year-old female patient with history of HT. She developed symptoms of chest pain and palpitations to come to the ER of [facility] this time. She also has symptoms of dizziness and light headiness and she and his PCP were concerned about CVA. Neurology was requested for consultation for stroke evaluation. PAST MEDICAL HISTORY Cardiovascular: Hyperlipidemia PAST SURGICAL HISTORY Tonsillectomy, Hysterectomy SOCIAL HISTORY Smoke: No ALCOHOL: none Drugs: None Lives: with Family ALLERGY: NKDA MEDICATIONS: Refer to MAR FAMILY HISTORY: Non contributory. SOCIAL HISTORY: Lives with family at home. l Denies smoking, drinking, and illicit drug use. REVIEW OF SYSTEMS: Constitutional: No malnutrition, weight loss, cachexia. Head: No traumatic brain or head injury. Skin: No edema, or rash. Ear: No infection. Eyes: No vision loss or color blindness. Nose: No bleeding or purulent discharges. Hearing: No hearing decrease. Neck: No injury. Breast: No history of cancer, masses,or discharges. Cardiac: HTN, HLD. Pulmonary: No COPD. GI: No GI ulcer, GI bleeding, GERD. Urinary/genital: UTI. Endocrinologic: No cousin face, craniofacial dysmorphism, polydactyly. Skeletomuscular: No muscular atrophy, deformity. Neurological: see HP. Psychiatric: Denies drug use/abuse. Otherwise, not [id number] review of systems. PHYSICAL EXAMINATION: General appearance is in subacute distress. HEENT: Normocephalic and nontraumatic. Eyes, nose, ears, and throat are unremarkable. Neck is supple. No lymphadenopathy. No bruits are heard over the carotid artery. No crepitus. Cardiovascular: S1, S2, regular rate and rhythm. Pulmonary: Clear to auscultation bilaterally. Abdomen: Bowel sounds are positive. Abdomen is soft, nontender, and nondistended. Extremities: No rash, lesions, or edema. No restriction of range of motion NEUROLOGICAL EXAMINATION: Alert Oriented to time, place and person. PERRL. EOMI. CN: no focal findings. Muscle tone: within normal. Muscle strength: 5 DTR: 2 Plantar reflex: Flexor response bilaterally Gait: not examined in bed. Sensory exam: no abnormal findings. No cerebellar signs elicited. F-T-N test accurate. Current Medications Current Medications Current Medications Aspirin (Children'S Aspirin) 324 mg 1X ONCE PO Last administered on 10/07/19at 19:52; Start 10/07/19 at 19:30; Stop 10/07/19 at 19:33; Status DC Ondansetron HCl (Zofran) 4 mg PRN Q8HRS PRN IV NAUSEA/VOMITING; Start 10/07/19 at 21:15; Stop 10/08/19 at 21:14 Nitroglycerin (Nitrostat) 0.4 mg PRN Q5MIN PRN SL CHEST PAIN; Start 10/07/19 at 21:15; Stop 10/08/19 at 21:14 Iohexol (Omnipaque 350 Mg/ml) 100 ml 1X ONCE IV Last administered on 10/07/19at 21:58; Start 10/07/19 at 21:30; Stop 10/07/19 at 21:31; Status DC Info (CONTRAST GIVEN -- Rx MONITORING) 1 each PRN DAILY PRN MC SEE COMMENTS; Start 10/07/19 at 21:30; Stop 10/09/19 at 21:29 Aspirin (Ecotrin) 81 mg DAILY PO Last administered on 10/08/19at 11:53; Start 10/08/19 at 11:00 Vitamin D (Vitamin D3) 1,000 unit DAILY PO Last administered on 10/08/19at 11:53; Start 10/08/19 at 10:00 EZETIMIBE (Zetia) 10 mg DAILY PO Last administered on 10/08/19at 11:53; Start 10/08/19 at 11:00 Multivitamins (Thera M Plus) 1 tab DAILY PO Last administered on 10/08/19at 11:53; Start 10/08/19 at 11:00 Simvastatin (Zocor) 40 mg QHS PO ; Start 10/08/19 at 21:00 Iohexol (Omnipaque 350 Mg/ml) 75 ml 1X ONCE IV Last administered on 10/08/19at 13:45; Start 10/08/19 at 13:45; Stop 10/08/19 at 13:46; Status DC Info (CONTRAST GIVEN -- Rx MONITORING) 1 each PRN DAILY PRN MC SEE COMMENTS; Start 10/08/19 at 13:45; Stop 10/10/19 at 13:44 Active Scripts Active Reported Multivitamins (Multivitamin) 1 Each Tablet 1 Each PO Vitamin D3 (Cholecalciferol (Vitamin D3)) 1,000 Unit Tablet 1,000 Unit PO Vytorin 10-40 Mg Tablet (Ezetimibe/Simvastatin) 1 Each Tablet 40 Each PO DAILY Metformin Hcl 500 Mg Tablet 500 Mg PO BIDWMEALS Aspir 81 (Aspirin) 81 Mg Tablet.dr 81 Mg PO Allergies Allergies: Allergies Coded Allergies Type Severity Reaction Last Updated Verified No Known Drug Allergies 02/23/18 No ROS Review of System The patient denies any associated fevers, chills, headache, ear pain, rhinorrhea, sore throat, stiff neck, productive cough, chest pain, shortness of breath, back or flank pain, abdominal pain, nausea, vomiting, diarrhea, constipation, dysuria, rash, numbness, weakness, tingling, incontinence, difficulty ambulating, or diaphoresis. Physical Exam Physical Exam General: Well developed, well nourished, no acute distress, well appearing HEENT: Pupils equally round and reactive to light, EOMI, no discharge, normal conjunctiva Neck: Supple, no nuchal rigidity, no JVD, trachea midline, no tenderness Cardiac: RRR, no murmurs, no gallops, no rubs Chest/Lungs: CTAB, no wheeze, no rhonchi, no crackles Abdomen: soft, non-distended, no guarding, no peritoneal signs, non-tender Back: No tenderness Extremities: no edema, pulses intact, non-tender,capillary refill <3 sec bilateral upper and lower extremities, Neuro: Alert and oriented x 4, no focal deficits, normal speech Vitals Vitals: Vital Signs Date Time Temp Pulse Resp B/P (MAP) Pulse Ox O2 Delivery O2 Flow Rate FiO2 10/08/19 11:00 97.6 83 18 110/70 (83) 96 Room Air 97.6 Labs Labs Laboratory Tests Test 10/07/19 20:00 10/08/19 01:45 10/08/19 03:30 White Blood Count 8.0 x10^3/uL (4.0-11.0) 7.3 x10^3/uL (4.0-11.0) Red Blood Count 4.63 x10^6/uL (3.50-5.40) 4.52 x10^6/uL (3.50-5.40) Hemoglobin 13.1 g/dL (12.0-15.5) 12.6 g/dL (12.0-15.5) Hematocrit 38.9 % (36.0-47.0) 37.9 % (36.0-47.0) Mean Corpuscular Volume 84 fL (79-100) 84 fL (79-100) Mean Corpuscular Hemoglobin 28 pg (25-35) 28 pg (25-35) Mean Corpuscular Hemoglobin Concent 34 g/dL (31-37) 33 g/dL (31-37) Red Cell Distribution Width 14.5 % (11.5-14.5) 14.5 % (11.5-14.5) Platelet Count 297 x10^3/uL (140-400) 280 x10^3/uL (140-400) Neutrophils (%) (Auto) 71 % (31-73) 59 % (31-73) Lymphocytes (%) (Auto) 18 % (24-48) 28 % (24-48) Monocytes (%) (Auto) 8 % (0-9) 9 % (0-9) Eosinophils (%) (Auto) 2 % (0-3) 3 % (0-3) Basophils (%) (Auto) 0 % (0-3) 1 % (0-3) Neutrophils # (Auto) 5.7 x10^3/uL (1.8-7.7) 4.3 x10^3/uL (1.8-7.7) Lymphocytes # (Auto) 1.5 x10^3/uL (1.0-4.8) 2.1 x10^3/uL (1.0-4.8) Monocytes # (Auto) 0.7 x10^3/uL (0.0-1.1) 0.7 x10^3/uL (0.0-1.1) Eosinophils # (Auto) 0.1 x10^3/uL (0.0-0.7) 0.2 x10^3/uL (0.0-0.7) Basophils # (Auto) 0.0 x10^3/uL (0.0-0.2) 0.0 x10^3/uL (0.0-0.2) D-Dimer (Makayla) 1.13 ug/mlFEU (0.00-0.50) Sodium Level 138 mmol/L (136-145) 140 mmol/L (136-145) Potassium Level 3.3 mmol/L (3.5-5.1) 3.2 mmol/L (3.5-5.1) Chloride Level 100 mmol/L (98-107) 103 mmol/L (98-107) Carbon Dioxide Level 31 mmol/L (21-32) 29 mmol/L (21-32) Anion Gap 7 (6-14) 8 (6-14) Blood Urea Nitrogen 14 mg/dL (7-20) 13 mg/dL (7-20) Creatinine 0.8 mg/dL (0.6-1.0) 0.9 mg/dL (0.6-1.0) Estimated GFR (Cockcroft-Gault) 72.2 63.0 BUN/Creatinine Ratio 18 (6-20) 14 (6-20) Glucose Level 118 mg/dL (70-99) 95 mg/dL (70-99) Calcium Level 9.0 mg/dL (8.5-10.1) 8.8 mg/dL (8.5-10.1) Magnesium Level 4.9 mg/dL (1.8-2.4) 2.0 mg/dL (1.8-2.4) Total Bilirubin 0.2 mg/dL (0.2-1.0) 0.3 mg/dL (0.2-1.0) Aspartate Amino Transf (AST/SGOT) 24 U/L (15-37) 21 U/L (15-37) Alanine Aminotransferase (ALT/SGPT) 28 U/L (14-59) 28 U/L (14-59) Alkaline Phosphatase 130 U/L (46-116) 113 U/L (46-116) Troponin I Quantitative < 0.017 ng/mL (0.000-0.055) < 0.017 ng/mL (0.000-0.055) < 0.017 ng/mL (0.000-0.055) JA-Laf-R-Type Natriuretic Peptide 28 pg/mL (0-124) Total Protein 7.7 g/dL (6.4-8.2) 6.6 g/dL (6.4-8.2) Albumin 3.7 g/dL (3.4-5.0) 3.4 g/dL (3.4-5.0) Albumin/Globulin Ratio 0.9 (1.0-1.7) 1.1 (1.0-1.7) Thyroid Stimulating Hormone (TSH) 1.671 uIU/mL (0.358-3.74) Triglycerides Level 67 mg/dL (0-150) Cholesterol Level 226 mg/dL (0-200) LDL Cholesterol, Calculated 162 mg/dL (0-100) VLDL Cholesterol, Calculated 13 mg/dL (0-40) Non-HDL Cholesterol Calculated 175 mg/dL (0-129) HDL Cholesterol 51 mg/dL (40-60) Cholesterol/HDL Ratio 4.4 Free Thyroxine 1.03 ng/dL (0.76-1.46) Laboratory Tests Test 10/07/19 20:00 10/08/19 01:45 10/08/19 03:30 White Blood Count 8.0 x10^3/uL (4.0-11.0) 7.3 x10^3/uL (4.0-11.0) Red Blood Count 4.63 x10^6/uL (3.50-5.40) 4.52 x10^6/uL (3.50-5.40) Hemoglobin 13.1 g/dL (12.0-15.5) 12.6 g/dL (12.0-15.5) Hematocrit 38.9 % (36.0-47.0) 37.9 % (36.0-47.0) Mean Corpuscular Volume 84 fL (79-100) 84 fL (79-100) Mean Corpuscular Hemoglobin 28 pg (25-35) 28 pg (25-35) Mean Corpuscular Hemoglobin Concent 34 g/dL (31-37) 33 g/dL (31-37) Red Cell Distribution Width 14.5 % (11.5-14.5) 14.5 % (11.5-14.5) Platelet Count 297 x10^3/uL (140-400) 280 x10^3/uL (140-400) Neutrophils (%) (Auto) 71 % (31-73) 59 % (31-73) Lymphocytes (%) (Auto) 18 % (24-48) 28 % (24-48) Monocytes (%) (Auto) 8 % (0-9) 9 % (0-9) Eosinophils (%) (Auto) 2 % (0-3) 3 % (0-3) Basophils (%) (Auto) 0 % (0-3) 1 % (0-3) Neutrophils # (Auto) 5.7 x10^3/uL (1.8-7.7) 4.3 x10^3/uL (1.8-7.7) Lymphocytes # (Auto) 1.5 x10^3/uL (1.0-4.8) 2.1 x10^3/uL (1.0-4.8) Monocytes # (Auto) 0.7 x10^3/uL (0.0-1.1) 0.7 x10^3/uL (0.0-1.1) Eosinophils # (Auto) 0.1 x10^3/uL (0.0-0.7) 0.2 x10^3/uL (0.0-0.7) Basophils # (Auto) 0.0 x10^3/uL (0.0-0.2) 0.0 x10^3/uL (0.0-0.2) D-Dimer (Makayla) 1.13 ug/mlFEU (0.00-0.50) Sodium Level 138 mmol/L (136-145) 140 mmol/L (136-145) Potassium Level 3.3 mmol/L (3.5-5.1) 3.2 mmol/L (3.5-5.1) Chloride Level 100 mmol/L (98-107) 103 mmol/L (98-107) Carbon Dioxide Level 31 mmol/L (21-32) 29 mmol/L (21-32) Anion Gap 7 (6-14) 8 (6-14) Blood Urea Nitrogen 14 mg/dL (7-20) 13 mg/dL (7-20) Creatinine 0.8 mg/dL (0.6-1.0) 0.9 mg/dL (0.6-1.0) Estimated GFR (Cockcroft-Gault) 72.2 63.0 BUN/Creatinine Ratio 18 (6-20) 14 (6-20) Glucose Level 118 mg/dL (70-99) 95 mg/dL (70-99) Calcium Level 9.0 mg/dL (8.5-10.1) 8.8 mg/dL (8.5-10.1) Magnesium Level 4.9 mg/dL (1.8-2.4) 2.0 mg/dL (1.8-2.4) Total Bilirubin 0.2 mg/dL (0.2-1.0) 0.3 mg/dL (0.2-1.0) Aspartate Amino Transf (AST/SGOT) 24 U/L (15-37) 21 U/L (15-37) Alanine Aminotransferase (ALT/SGPT) 28 U/L (14-59) 28 U/L (14-59) Alkaline Phosphatase 130 U/L (46-116) 113 U/L (46-116) Troponin I Quantitative < 0.017 ng/mL (0.000-0.055) < 0.017 ng/mL (0.000-0.055) < 0.017 ng/mL (0.000-0.055) UF-Ink-D-Type Natriuretic Peptide 28 pg/mL (0-124) Total Protein 7.7 g/dL (6.4-8.2) 6.6 g/dL (6.4-8.2) Albumin 3.7 g/dL (3.4-5.0) 3.4 g/dL (3.4-5.0) Albumin/Globulin Ratio 0.9 (1.0-1.7) 1.1 (1.0-1.7) Thyroid Stimulating Hormone (TSH) 1.671 uIU/mL (0.358-3.74) Triglycerides Level 67 mg/dL (0-150) Cholesterol Level 226 mg/dL (0-200) LDL Cholesterol, Calculated 162 mg/dL (0-100) VLDL Cholesterol, Calculated 13 mg/dL (0-40) Non-HDL Cholesterol Calculated 175 mg/dL (0-129) HDL Cholesterol 51 mg/dL (40-60) Cholesterol/HDL Ratio 4.4 Free Thyroxine 1.03 ng/dL (0.76-1.46) JOHN ROYAL MD Oct 08, 2019 16:08
--- NOTE | 2019-10-08 16:34 | RAD ---
Head and neck CTA with and without contrast and 3-D reconstruction: Clinical indications: Dizziness and fluctuating blood pressure. Technique: Noncontrast axial localizer was performed. Following IV infusion of 75 cc of Omnipaque 350, helical CT scanning of the neck and head was performed. Axial and coronal and sagittal 2-D MIP reconstructions were generated and reviewed on a computer monitor. Using a MIP algorithm, a 3-D reconstructed angiogram was generated and reviewed on a computer monitor. PQRS compliance Statement One or more of the following individualized dose reduction techniques were utilized for this study: 1. Automated exposure control 2. Adjustment of the mA and/or kV according to patient size 3. Use of iterative reconstruction technique The measurements were performed using the NASCET criteria. Head CT Findings: No acute intracranial hemorrhage or midline shift or mass effect or hydrocephalus or extra-axial fluid collection or intracranial contrast enhancing lesion is seen. No focal hypodense area is seen to indicate an acute infarct or edema radiographically. Neck CTA Findings: No occlusive disease is seen. No significant stenosis is evident. However, there is soft plaque within the carotid bulbs bilaterally. There is irregularity and focal outpouching of contrast within this plaque involving the posterior aspect of the right carotid bulb and the posterior aspect of the proximal right ICA consistent with ulcerative plaque. Similar less prominent finding is seen involving the left side as well. The left vertebral artery is slightly larger than the right side. No soft tissue mass or enlarged cervical lymphadenopathy is seen. There is an 11 mm hypodense nodule with calcification of the lower pole of the left lobe of the thyroid gland. Head CTA Findings: No aneurysm is seen involving the craig of [place]. No occlusive disease or significant stenosis is seen. No thromboembolism is identified. No arteriovenous malformation is evident. No thrombosis of the dural venous sinuses is evident. IMPRESSION: Ulcerative plaque of the carotid bifurcations within the neck bilaterally more prominent on the right side. Otherwise no significant stenosis is evident. No occlusive disease is seen. Nodule of the lower pole of the left lobe of the thyroid gland. Recommend outpatient thyroid sonography. Electronically signed by: Usman Bates MD (10/08/2019 4:32 PM) [facility]
[2019-10-08] MEDS ORDERED: SIMVASTATIN 40 MG TABLET. PO SCH (21:00)
[2019-10-09 03:05] VITALS: BP 114/59
[2019-10-09 07:00] VITALS: BP 127/69
[2019-10-09] MEDS: CHOLECALCIFEROL (VITAMIN D3) 1,000 UNIT TABLET PO SCH (08:18)
[2019-10-09] MEDS: ASPIRIN ENTERIC COATED 81 MG TABLET.DR. PO SCH (08:18)
[2019-10-09] MEDS: EZETIMIBE 10 MG TABLET. PO SCH (08:18)
[2019-10-09] MEDS: MULTIVITAMIN with MINERAL TABLET. PO SCH (08:18)
--- NOTE | 2019-10-09 09:07 | PDOC ---
PULMONARY PROGRESS NOTES Vitals Vital Signs Date Time Temp Pulse Resp B/P (MAP) Pulse Ox O2 Delivery O2 Flow Rate FiO2 10/09/19 07:00 97.7 85 17 127/69 (88) 97 Room Air 97.7 Labs Laboratory Tests Test 10/07/19 20:00 10/08/19 01:45 10/08/19 03:30 White Blood Count 8.0 x10^3/uL (4.0-11.0) 7.3 x10^3/uL (4.0-11.0) Red Blood Count 4.63 x10^6/uL (3.50-5.40) 4.52 x10^6/uL (3.50-5.40) Hemoglobin 13.1 g/dL (12.0-15.5) 12.6 g/dL (12.0-15.5) Hematocrit 38.9 % (36.0-47.0) 37.9 % (36.0-47.0) Mean Corpuscular Volume 84 fL (79-100) 84 fL (79-100) Mean Corpuscular Hemoglobin 28 pg (25-35) 28 pg (25-35) Mean Corpuscular Hemoglobin Concent 34 g/dL (31-37) 33 g/dL (31-37) Red Cell Distribution Width 14.5 % (11.5-14.5) 14.5 % (11.5-14.5) Platelet Count 297 x10^3/uL (140-400) 280 x10^3/uL (140-400) Neutrophils (%) (Auto) 71 % (31-73) 59 % (31-73) Lymphocytes (%) (Auto) 18 % (24-48) 28 % (24-48) Monocytes (%) (Auto) 8 % (0-9) 9 % (0-9) Eosinophils (%) (Auto) 2 % (0-3) 3 % (0-3) Basophils (%) (Auto) 0 % (0-3) 1 % (0-3) Neutrophils # (Auto) 5.7 x10^3/uL (1.8-7.7) 4.3 x10^3/uL (1.8-7.7) Lymphocytes # (Auto) 1.5 x10^3/uL (1.0-4.8) 2.1 x10^3/uL (1.0-4.8) Monocytes # (Auto) 0.7 x10^3/uL (0.0-1.1) 0.7 x10^3/uL (0.0-1.1) Eosinophils # (Auto) 0.1 x10^3/uL (0.0-0.7) 0.2 x10^3/uL (0.0-0.7) Basophils # (Auto) 0.0 x10^3/uL (0.0-0.2) 0.0 x10^3/uL (0.0-0.2) D-Dimer (Makayla) 1.13 ug/mlFEU (0.00-0.50) Sodium Level 138 mmol/L (136-145) 140 mmol/L (136-145) Potassium Level 3.3 mmol/L (3.5-5.1) 3.2 mmol/L (3.5-5.1) Chloride Level 100 mmol/L (98-107) 103 mmol/L (98-107) Carbon Dioxide Level 31 mmol/L (21-32) 29 mmol/L (21-32) Anion Gap 7 (6-14) 8 (6-14) Blood Urea Nitrogen 14 mg/dL (7-20) 13 mg/dL (7-20) Creatinine 0.8 mg/dL (0.6-1.0) 0.9 mg/dL (0.6-1.0) Estimated GFR (Cockcroft-Gault) 72.2 63.0 BUN/Creatinine Ratio 18 (6-20) 14 (6-20) Glucose Level 118 mg/dL (70-99) 95 mg/dL (70-99) Calcium Level 9.0 mg/dL (8.5-10.1) 8.8 mg/dL (8.5-10.1) Magnesium Level 4.9 mg/dL (1.8-2.4) 2.0 mg/dL (1.8-2.4) Total Bilirubin 0.2 mg/dL (0.2-1.0) 0.3 mg/dL (0.2-1.0) Aspartate Amino Transf (AST/SGOT) 24 U/L (15-37) 21 U/L (15-37) Alanine Aminotransferase (ALT/SGPT) 28 U/L (14-59) 28 U/L (14-59) Alkaline Phosphatase 130 U/L (46-116) 113 U/L (46-116) Troponin I Quantitative < 0.017 ng/mL (0.000-0.055) < 0.017 ng/mL (0.000-0.055) < 0.017 ng/mL (0.000-0.055) PC-Tyb-N-Type Natriuretic Peptide 28 pg/mL (0-124) Total Protein 7.7 g/dL (6.4-8.2) 6.6 g/dL (6.4-8.2) Albumin 3.7 g/dL (3.4-5.0) 3.4 g/dL (3.4-5.0) Albumin/Globulin Ratio 0.9 (1.0-1.7) 1.1 (1.0-1.7) Thyroid Stimulating Hormone (TSH) 1.671 uIU/mL (0.358-3.74) Triglycerides Level 67 mg/dL (0-150) Cholesterol Level 226 mg/dL (0-200) LDL Cholesterol, Calculated 162 mg/dL (0-100) VLDL Cholesterol, Calculated 13 mg/dL (0-40) Non-HDL Cholesterol Calculated 175 mg/dL (0-129) HDL Cholesterol 51 mg/dL (40-60) Cholesterol/HDL Ratio 4.4 Free Thyroxine 1.03 ng/dL (0.76-1.46) Medications Active Scripts Medications Dose Route/Sig Max Daily Dose Days Date Category Multivitamins (Multivitamin) 1 Each Tablet 1 Each PO 09/14/16 Reported Vitamin D3 (Cholecalciferol (Vitamin D3)) 1,000 Unit Tablet 1,000 Unit PO 09/14/16 Reported Vytorin 10-40 Mg Tablet (Ezetimibe/Simvastatin) 1 Each Tablet 40 Each PO DAILY 09/14/16 Reported Metformin Hcl 500 Mg Tablet 500 Mg PO BIDWMEALS 09/14/16 Reported Aspir 81 (Aspirin) 81 Mg Tablet. 81 Mg PO 09/14/16 Reported HOA ROBLES MD Oct 09, 2019 09:07
--- NOTE | 2019-10-09 10:51 | PDOC ---
CARDIO Progress Notes Date and Time Date of Service 10/09/2019 Time of Evaluation 1030 Subjective Subjective: No Chest Pain, No shortness of breath, No Palpitations, Other (still has some mild occasional dizziness) Vitals Vitals Vital Signs Date Time Temp Pulse Resp B/P (MAP) Pulse Ox O2 Delivery O2 Flow Rate FiO2 10/09/19 07:00 97.7 85 17 127/69 (88) 97 Room Air 97.7 Weight Weight [ ] Input and Output Intake and Output Intake and Output 10/09/19 07:00 Intake Total 1230 ml Balance 1230 ml Intake Oral 1230 ml # Voids 6 # Bowel Movements 1 Physical Exam HEENT: Neck Supple W Full Motion Chest: Symmetric LUNGS: Clear to Auscultation Heart: S1S2, RRR (Sr no ectopies) Abdomen: Soft N/T Extremities: No Calf Tenderness Neurology: alert, oriented, follow commands Assessment Assessment 1. CP: potentially from palpitations, no further episodes. 2. Mild Dizziness: no arrhythmias, no orthostasis, potentially BPPV 3. HTN: controlled without treatment 4. HLP: uncontrolled 5. Hypokalemia: due to HCTZ 6. Subacute right 5th rib fracture: unknown origin, defer to PCP Recommendations 1. Potential tachyarrhythmia causing her palpitations with underlying hypokalemi a, plan for outpt event monitor 2. BMP 3. Continue home zocor/zetia. Intolerant to crestor and lipitor. Will arrange for [id number]. 4. HBPM to better ascertain need for BP regimen. DASH diet. 5. PT to perform vertigo maneuvers ARIEL GIRON APRN Oct 09, 2019 10:51
[2019-10-09 11:00] VITALS: BP 128/65
[2019-10-09 11:41] LABS: CALCIUM 9.1 mg/dL (8.5-10.1); CREATININE 0.9 mg/dL (0.6-1.0); POTASSIUM 3.9 mmol/L (3.5-5.1)
--- NOTE | 2019-10-09 12:12 | PDOC ---
[facility] PROGRESS NOTE Chief Complaint Chief Complaint Chest pain, palpitations History of Present Illness History of Present Illness 10/09/19 Pt seen and examined. Pt conversational. Pt care discussed with RN. Pt chart reviewed. Vitals/I&O Vitals/I&O: Vital Signs Date Time Temp Pulse Resp B/P (MAP) Pulse Ox O2 Delivery O2 Flow Rate FiO2 10/09/19 11:00 98.3 100 17 128/65 (86) 98 Room Air 98.3 I & O 10/08/19 10/08/19 10/09/19 15:00 23:00 07:00 Intake Total 240 ml 240 ml 750 ml Balance 240 ml 240 ml 750 ml Physical Exam General: Alert, Cooperative, No acute distress Heart: Regular rate, No murmurs Lungs: Clear, Other (No respiratory distress) Abdomen: Normal bowel sounds, Soft Extremities: No clubbing, No cyanosis Skin: No rashes, No significant lesion Labs Labs: Laboratory Tests Test 10/09/19 11:10 Sodium Level 135 mmol/L (136-145) Potassium Level 3.9 mmol/L (3.5-5.1) Chloride Level 95 mmol/L (98-107) Carbon Dioxide Level 32 mmol/L (21-32) Anion Gap 8 (6-14) Blood Urea Nitrogen 10 mg/dL (7-20) Creatinine 0.9 mg/dL (0.6-1.0) Estimated GFR (Cockcroft-Gault) 63.0 Glucose Level 122 mg/dL (70-99) Calcium Level 9.1 mg/dL (8.5-10.1) Review of Systems Review of Systems: Neurologic: Denies headache Cardio: Denies chest pain GI: Denies abdominal pain General: Denies fever Assessment and Plan Assessmemt and Plan Problems Medical Problems: (1) Chest pain Status: Acute (2) Elevated troponin Status: Acute (3) Hypermagnesemia Status: Acute (4) Palpitations Status: Acute Chest pain Mild Dizziness HTN HLP Hypokalemia Subacute right 5th rib fracture PLAN - Await results of echo and MRI today - Consult vascular surgery for ulcerative carotid plaque - Discharge this evening if given the ok from consults - DVT prophylaxis - Home medications Comment Review of Relevant I have reviewed the following items alex (where applicable) has been applied. Medications: Current Medications Medications (Trade) Dose Ordered Sig/Anika Route PRN Reason Start Time Stop Time Status Last Admin Dose Admin Simvastatin (Zocor) 40 mg QHS PO 10/08/19 21:00 10/08/19 21:27 Iohexol (Omnipaque 350 Mg/ml) 75 ml 1X ONCE IV 10/08/19 13:45 10/08/19 13:46 DC 10/08/19 13:45 SALTY DAS III DO Oct 09, 2019 12:11
[2019-10-09] MEDS ORDERED: GADOTERATE 7.5 MMOL/15ML VIAL. IVP ONE (12:45)
--- NOTE | 2019-10-09 12:52 | DS ---
DATE OF DISCHARGE: 10/09/2019 ADMISSION DIAGNOSIS: Chest pain, palpitations, dizziness, vague headache and elevated blood pressure with hypertensive urgency and periodic hypotension. DISCHARGE DIAGNOSES: Atypical chest pain, resolving palpitations, resolving hypertensive urgency, abnormal carotid imaging showing a carotid plaque with an ulcerated plaque. CONSULTS: Neurology, Cardiology, Pulmonary Medicine, and Vascular Surgery and Dr. Rafita Farrell. PROCEDURES: None. 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 She actually has an MD degree as well and used to be and [employer]. Basically, she presented with vague complaints of chest pain and palpitations and dizziness and vague headache and elevated blood pressure. We admitted her and the above consults were obtained. So far her workup was completely negative. Her thyroid studies are normal. Her labs look great. Her blood pressure has normalized. We did find an incidental discovery of a right 5th rib fracture, which she really does not understand how that could have been because she never fell, although she did have a severe coughing episode a couple of weeks ago. We also discovered she had a carotid plaque with some ulceration. I am consulting Dr. Farrell of the Vascular Surgery team to take a look and give a second opinion, but I do not think this is going to hold her discharge. Overall, I saw her and examined her this morning. Heart tones were normal. Lungs were clear. She was on the edge of the bed, smiling and requesting discharge. I reviewed the Cardiology notes and the Pulmonary notes and the Neurology notes. Neurology recommends daily aspirin. The CAT scan of the chest that did not show any pulmonary emboli, but did show incidental finding of a 6-mm nodule, but basically that just to be rechecked in 12 months. Overall, she looks great. She wants to go home if okay with the vascular surgeon and the other consultants. I am going to let her get her out this afternoon with close outpatient followup. DISPOSITION: Home. ACTIVITY: As tolerated. DIET: Low sodium. MEDICATIONS: Please see the MRAD. I am resuming her home meds, but I am discontinuing her metformin Home meds include vitamin D, multivitamin. TOTAL TIME: 32 minutes. SALTY DAS DO DR: LORENA/shira JOB#: [id number] / [id number]
[2019-10-09 15:00] VITALS: BP 154/88
--- NOTE | 2019-10-09 15:02 | CARD ---
MR#: [id number] Date of Study: 10/09/2019 Ordering Physician: RUSSELL BATRES, Referring Physician: RUSSELL BATRES, Tech: Patricia Melchor RUBA APPROVED REPORT EXAM: Two-dimensional and M-mode echocardiogram with Doppler and color Doppler. Other Information Quality : Good INDICATION Palpitations Dizziness and Vertigo Chest Pain 2D DIMENSIONS RVDd2.3 (2.9-3.5cm)Left Atrium(2D)3.4 (1.6-4.0cm) IVSd0.9 (0.7-1.1cm)Aortic Root(2D)2.4 (2.0-3.7cm) LVDd3.2 (3.9-5.9cm)LVOT Diameter1.9 (1.8-2.4cm) PWd1.0 (0.7-1.1cm)LVDs2.3 (2.5-4.0cm) FS (%) 29.2 %SV23.3 ml LVEF(%)57.5 (>50%) Aortic Valve AoV Peak Stanton.150.7cm/sAoV VTI26.5cm AO Peak GR.9.1mmHgLVOT Peak Stanton.118.8cm/s AO Mean GR.5mmHgAVA (VMAX)2.18cm2 OSCAR (VTI)2.30cm2 Mitral Valve MV E Esqgksxc21.0cm/sMV DECEL YFTV946gb MV A Qetxejis438.6cm/sE/A Ratio0.7 Tricuspid Valve TR P. Lecpyhqr024cd/sRAP IAGQWODE7neGy TR Peak Gr.61ieNxZHXH61zhAd Pulmonary Vein S1 Khmiooyr26.7cm/sD2 Nhtjnbvy75.9cm/s LEFT VENTRICLE The left ventricle is normal size. There is normal left ventricular wall thickness. The left ventricu lar systolic function is normal. The Ejection Fraction is 55-60%. There is normal LV segmental wall m otion. Transmitral Doppler flow pattern is Grade I-abnormal relaxation pattern. RIGHT VENTRICLE The right ventricle is normal size. The right ventricular systolic function is normal. ATRIA The left atrium size is normal. The right atrium size is normal. The interatrial septum is intact wit h no evidence for an atrial septal defect or patent foramen ovale as noted on 2-D or Doppler imaging. AORTIC VALVE The aortic valve is calcified but opens well. Doppler and Color Flow revealed no significant aortic r egurgitation. There is no significant aortic valvular stenosis. MITRAL VALVE The mitral valve is normal in structure and function. There is no evidence of mitral valve prolapse. There is no mitral valve stenosis. Doppler and Color Flow revealed no mitral valve regurgitation note d. TRICUSPID VALVE The tricuspid valve is normal in structure and function. Doppler and Color Flow revealed trace tricus pid regurgitation. The PA pressure was estimated at 25 mmHg. There is no tricuspid valve stenosis. PULMONIC VALVE The pulmonic valve is not well visualized. Doppler and Color Flow revealed no pulmonic valvular regur gitation. There is no pulmonic valvular stenosis. GREAT VESSELS The aortic root is normal in size. The ascending aorta is normal in size. The IVC is normal in size a nd collapses >50% with inspiration. PERICARDIAL EFFUSION There is no evidence of significant pericardial effusion. Critical Notification Critical Value: No <Conclusion> The left ventricular systolic function is normal. The Ejection Fraction is 55-60%. There is normal LV segmental wall motion. Transmitral Doppler flow pattern is Grade I-abnormal relaxation pattern. Trace tricuspid regurgitation. The PA pressure was estimated at 25 mmHg. There is no evidence of significant pericardial effusion. Signed by : Paulino Valencia, Electronically Approved : 10/09/2019 15:02:45
--- NOTE | 2019-10-09 15:13 | RAD ---
MRI of the Brain without and with Contrast 10/09/2019 Clinical History: Dizziness with fluctuating blood pressure. Technique: Unenhanced T1-weighted sagittal and axial and FLAIR, T2-weighted, gradient echo and diffusion-weighted axial images of the brain were obtained. After the intravenous administration of 12 cc of DOTAREM, enhanced T1-weighted axial and coronal images of the brain were obtained. Findings: Comparison is made to the patient's CTA of the head dated 10/08/2019. There is generalized parenchymal atrophy. Patchy, confluent and multiple small focal areas of abnormally increased signal intensity are seen within the periventricular and subcortical white matter of both cerebral hemispheres on the FLAIR and T2-weighted images consistent with areas of small vessel ischemic disease. No acute parenchymal abnormality is seen. No abnormal area of contrast enhancement is noted. No extra-axial fluid collection is seen. There is no MRI evidence of acute ischemia/infarction. Mild mucosal thickening is seen scattered throughout the paranasal sinuses. There are minimal bilateral mastoid effusions. Normal flow voids are seen within the major vascular structures surrounding the brain parenchyma. Impression: No acute parenchymal abnormality is seen. Electronically signed by: Ankit Stein MD (10/09/2019 3:10 PM) [id number]
--- NOTE | 2019-10-09 17:53 | NUR ---
Pt cleared by all consults to be discharged. Cardiology plans for an outpatient event monitor to be done. A repeat Ct will be done in 8 months. Discharge teaching and planning were done with pt and spouse. IV was removed with tip in tact. Pt taken out by wheelchair. Transportation provided by spouse.
--- NOTE | 2019-10-09 18:32 | PDOC ---
PROGRESS NOTES Assessment Assessment Dizziness. Light headiness. Visual disturbances. Palpitation. Hypertensive events. HTN. Hypotensive events. Ulcerative plaque at carotid A bifurcation, right > left, but not high grade. Subacute right 5th rib fracture. Right LL 6 mm nodule. No evidence of acute CVA this time. RECOMMENDATIONS/PLAN: Change ASA from 81 mg to 325 mg daily. Continue Zocor HS. Lab; T-spot. Treat medical diseases. FU with PCP. FU with Pulmonary Medicaine. FU with Neurology as needed. Brain MRI on 10/09/19: negative. HISTORY OF PRESENT ILLNESS This is a 63-year-old female patient with history of HT. She developed symptoms of chest pain and palpitations to come to the ER of [facility] this time. She also has symptoms of dizziness and light headiness and she and his PCP were concerned about CVA. Neurology was requested for consultation for stroke evaluation. 10/09/19: Symptoms improved. PAST MEDICAL HISTORY Cardiovascular: Hyperlipidemia PAST SURGICAL HISTORY Tonsillectomy, Hysterectomy SOCIAL HISTORY Smoke: No ALCOHOL: none Drugs: None Lives: with Family ALLERGY: NKDA MEDICATIONS: Refer to MAR FAMILY HISTORY: Non contributory. SOCIAL HISTORY: Lives with family at home. l Denies smoking, drinking, and illicit drug use. REVIEW OF SYSTEMS: Constitutional: No malnutrition, weight loss, cachexia. Head: No traumatic brain or head injury. Skin: No edema, or rash. Ear: No infection. Eyes: No vision loss or color blindness. Nose: No bleeding or purulent discharges. Hearing: No hearing decrease. Neck: No injury. Breast: No history of cancer, masses,or discharges. Cardiac: HTN, HLD. Pulmonary: No COPD. GI: No GI ulcer, GI bleeding, GERD. Urinary/genital: UTI. Endocrinologic: No cousin face, craniofacial dysmorphism, polydactyly. Skeletomuscular: No muscular atrophy, deformity. Neurological: see HP. Psychiatric: Denies drug use/abuse. Otherwise, not [id number] review of systems. PHYSICAL EXAMINATION: General appearance is in subacute distress. HEENT: Normocephalic and nontraumatic. Eyes, nose, ears, and throat are unremarkable. Neck is supple. No lymphadenopathy. No bruits are heard over the carotid artery. No crepitus. Cardiovascular: S1, S2, regular rate and rhythm. Pulmonary: Clear to auscultation bilaterally. Abdomen: Bowel sounds are positive. Abdomen is soft, nontender, and nondistended. Extremities: No rash, lesions, or edema. No restriction of range of motion NEUROLOGICAL EXAMINATION: Alert Oriented to time, place and person. PERRL. EOMI. CN: no focal findings. Muscle tone: within normal. Muscle strength: 5 DTR: 2 Plantar reflex: Flexor response bilaterally Gait: not examined in bed. Sensory exam: no abnormal findings. No cerebellar signs elicited. F-T-N test accurate. Objective Objective Vital Signs Date Time Temp Pulse Resp B/P (MAP) Pulse Ox O2 Delivery O2 Flow Rate FiO2 10/09/19 15:00 97.7 98 17 154/88 (110) 96 Room Air 97.7 Intake and Output 10/09/19 07:00 Intake Total 1230 ml Balance 1230 ml Intake Oral 1230 ml # Voids 6 # Bowel Movements 1 Vitals Signs Vitals VS - Last 72 Hours, by Label Date Time Temp Pulse Resp B/P (MAP) Pulse Ox O2 Delivery O2 Flow Rate FiO2 10/09/19 15:00 97.7 98 17 154/88 (110) 96 Room Air 97.7 10/09/19 11:00 98.3 100 17 128/65 (86) 98 Room Air 98.3 10/09/19 08:00 Room Air 10/09/19 07:00 97.7 85 17 127/69 (88) 97 Room Air 97.7 10/09/19 03:05 98.1 79 17 114/59 (77) 96 Room Air 98.1 10/08/19 23:05 98.2 81 17 132/75 (94) 98 Room Air 98.2 10/08/19 20:05 Room Air 10/08/19 19:05 98.1 88 17 123/63 (83) 98 Room Air 98.1 10/08/19 17:36 122/64 (83) 10/08/19 17:36 108/62 (77) 10/08/19 17:30 122/63 (82) 10/08/19 15:00 97.6 93 18 127/65 (85) 98 Room Air 97.6 10/08/19 11:00 97.6 83 18 110/70 (83) 96 Room Air 97.6 10/08/19 08:00 Room Air 10/08/19 07:00 97.6 69 16 94/49 (64) 98 Room Air 97.6 Laboratory Laboratory Laboratory Tests Test 10/09/19 11:10 Erythrocyte Sedimentation Rate 9 (0-25) Sodium Level 135 mmol/L (136-145) Potassium Level 3.9 mmol/L (3.5-5.1) Chloride Level 95 mmol/L (98-107) Carbon Dioxide Level 32 mmol/L (21-32) Anion Gap 8 (6-14) Blood Urea Nitrogen 10 mg/dL (7-20) Creatinine 0.9 mg/dL (0.6-1.0) Estimated GFR (Cockcroft-Gault) 63.0 Glucose Level 122 mg/dL (70-99) Calcium Level 9.1 mg/dL (8.5-10.1) Medication Medications Current Medications Aspirin (Ecotrin) 81 mg DAILYWBKFT PO ; Start 10/10/19 at 08:00; Status UNV Aspirin (Ecotrin) 325 mg DAILY PO ; Start 10/10/19 at 09:00 Atorvastatin Calcium (Lipitor) 40 mg QHS PO ; Start 10/09/19 at 21:00; Stop 10/09/19 at 11:07; Status DC Gadoterate Meglumine (Dotarem) 12 ml 1X ONCE IVP Last administered on 10/09/19at 12:45; Start 10/09/19 at 12:45; Stop 10/09/19 at 12:46; Status DC Simvastatin (Zocor) 40 mg QHS PO Last administered on 10/08/19at 21:27; Start 10/08/19 at 21:00 Comment Review of Relevant I have reviewed the following items alex (where applicable) has been applied. JOHN ROYAL MD Oct 09, 2019 18:32
[2019-10-09] MEDS ORDERED: ATORVASTATIN CALCIUM 40 MG TABLET. PO SCH (21:00)
[2019-10-10] MEDS ORDERED: ASPIRIN ENTERIC COATED 81 MG TABLET.DR. PO SCH ×2 (08:00→09:00)
== END 2019-10-09 17:53 | disposition home or self-care (01) | DRG 68 ==
LOC: ER 18:52 → 6 SOUTH 21:20 → OBSVTOIN 10-08 16:24
PROVIDERS: ADMIT Family Medicine; ATTEND Family Medicine
DX: I65.29 Occlusion and stenosis of unspecified carotid artery (principal); S22.31XA Fracture of one rib, right side, initial encounter for closed fracture; R07.89 Other chest pain; I16.0 Hypertensive urgency; E87.6 Hypokalemia; E78.00 Pure hypercholesterolemia, unspecified; E78.5 Hyperlipidemia, unspecified; E83.41 Hypermagnesemia; I10 Essential (primary) hypertension; T50.2X5A Adverse effect of carbonic-anhydrase inhibitors, benzothiadiazides and other diuretics, initial encounter; Z82.49 Family history of ischemic heart disease and other diseases of the circulatory system; Z90.710 Acquired absence of both cervix and uterus; Z79.82 Long term (current) use of aspirin; F41.9 Anxiety disorder, unspecified
CPT/HCPCS: 36415; 70496; 70498; 70553; 71045; 71275; 80048; 80053; 80061; 83735; 83880; 84439; 84443; 84484; 85025; 85379; 85651; 93005; 93306; 93880; A9575; G0378; G0379; Q9967; 99285-25

== ENCOUNTER 2019-10-12 10:54 | Day surgery (SDC) | payer OTHER ==
[~2019-10-12 10:54] MED LIST changes: +CIPROFLOXACIN 0.3% OPHTH SOLUTION 5ML BOTTLE. OS ONE; +HYDROmorphone 2 MG/ML VIAL IV PRN; +IV RINGERS,LACTATED 1000ML 1,000 ML IV SCH; +LIDOCAINE 1% PF 2 ML VIAL. ID PRN; +MORPHINE SULFATE 2 MG/ML VIAL. IV PRN; +ONDANSETRON PF 4 MG/2 ML VIAL. IV PRN; +PROCHLORPERAZINE 10 MG/2 ML VIAL. IV PRN; +PROPARACAINE 0.5% OPHTH SOLUTION 15ML BOTTLE. OS ONE; +fentaNYL PF VIAL 100 MCG/2 ML VIAL IV PRN
[2019-10-12] MEDS: PHENYLEPHRINE 10% OPHTH SOLUTION 5ML BOTTLE. OS SCH ×3 (12:15→12:26)
[2019-10-12] MEDS: CYCLOPENTOLATE 1% OPTH SOLUTION 2ML BOTTLE. OS SCH ×3 (12:15→12:26)
[2019-10-12] MEDS: LIDOCAINE 2% JELLY 6ML IN APPLICATOR. MM PRN ×2 (13:13→13:23)
[2019-10-12] MEDS ORDERED: LIDOCAINE 1% PF 2 ML VIAL. ONE (13:24)
[2019-10-12] MEDS ORDERED: NEO/POLYMYX/DEXAMETH OPHTH OINTMENT 3.5GM TUBE. ONE (13:24)
[2019-10-12] MEDS ORDERED: CHONDROIT-SOD-HYALURONATE KIT. ONE (13:24)
[2019-10-12 15:30] VITALS: BP 160/71
--- NOTE | 2019-10-12 18:19 | OP ---
DATE OF SURGERY: 10/12/2019 PREOPERATIVE DIAGNOSIS: Significant nuclear and cortical spoking type cataract, left eye. POSTOPERATIVE DIAGNOSIS: Significant nuclear and cortical spoking type cataract, left eye. PROCEDURE: Phacoemulsification with posterior chamber lens implant with use of VisionBlue. ANESTHESIA: Topical with MAC. DESCRIPTION OF PROCEDURE: The patient's dilating and anesthetic drops were placed in the left eye in the holding room and the Honan balloon cuff used for about 10 minutes. The patient was then brought to the operating room, positioned on the table and the left eye was prepped and draped in the usual sterile manner for an intraocular procedure. The operating microscope was brought into position and the eye was first observed and it was noted there was significant nuclear and cortical spoking type cataract. I decided I would need to use VisionBlue to help to facilitate capsulorrhexis. A paracentesis incision was made inferotemporally and Phenylid was injected into the anterior chamber followed by an injection of air in a Viscoat plug. Vision blue was then infiltrated over the anterior capsule for staining. The air was then displaced with Viscoat and the primary 2.4 mm incision was made temporally. I was then able to perform the capsulorrhexis with a bent needle and forceps without difficulty. The lens nucleus was hydrodissected and phacoemulsified with the phaco handpiece and the cortical material was aspirated with the I/A handpiece. Provisc was used to insufflate the bag and form the anterior chamber and a posterior chamber intraocular lens placed in the bag without difficulty. The Provisc was then aspirated with the I/A handpiece and the wound was hydrated. The eye was pressurized and the wound was checked for leaks and there were none. The speculum and drape were removed and Maxitrol ointment was instilled in the conjunctival sac and the eye was shielded. There were no complications. The patient was taken to the recovery room in satisfactory condition, and I will see her in the next 2-3 days in my office. K GATITO VANN MD DR: ONOFRE/shira JOB#: [id number] / [id number]
== END 2019-10-12 15:59 | disposition home or self-care (01) ==
LOC: SURG 10:54
PROVIDERS: ATTEND Ophthalmology
DX: H25.812 Combined forms of age-related cataract, left eye (principal); E78.00 Pure hypercholesterolemia, unspecified; E11.9 Type 2 diabetes mellitus without complications; E78.5 Hyperlipidemia, unspecified; Z79.84 Long term (current) use of oral hypoglycemic drugs; Z90.710 Acquired absence of both cervix and uterus; Z98.890 Other specified postprocedural states; Z87.39 Personal history of other diseases of the musculoskeletal system and connective tissue; Z72.89 Other problems related to lifestyle
CPT/HCPCS: 66982; A7015; C1780; J0171

== ENCOUNTER 2019-10-26 10:58 | Day surgery (SDC) | payer OTHER ==
[~2019-10-26] VITALS: Ht 160 cm; Wt 63.0 kg
[~2019-10-26 10:58] MED LIST changes: +CIPROFLOXACIN 0.3% OPHTH SOLUTION 5ML BOTTLE. OD ONE; -CIPROFLOXACIN 0.3% OPHTH SOLUTION 5ML BOTTLE. OS ONE; -LIDOCAINE 1% PF 2 ML VIAL. ID PRN; +LIDOCAINE 2% JELLY 6ML IN APPLICATOR. MM ONE; +PROPARACAINE 0.5% OPHTH SOLUTION 15ML BOTTLE. OD ONE; -PROPARACAINE 0.5% OPHTH SOLUTION 15ML BOTTLE. OS ONE
[2019-10-26] MEDS: PHENYLEPHRINE 10% OPHTH SOLUTION 5ML BOTTLE. OD SCH ×3 (11:40→11:50)
[2019-10-26] MEDS: CYCLOPENTOLATE 1% OPTH SOLUTION 2ML BOTTLE. OD SCH ×3 (11:40→11:50)
[2019-10-26] MEDS ORDERED: CHONDROIT-SOD-HYALURONATE KIT. ONE (13:36)
[2019-10-26 14:30] VITALS: BP 142/65
--- NOTE | 2019-10-26 17:48 | OP ---
DATE OF SURGERY: 10/26/2019 PREOPERATIVE DIAGNOSIS: Significant nuclear and cortical cataract of the right eye. POSTOPERATIVE DIAGNOSIS: Significant nuclear and cortical cataract of the right eye. PROCEDURE: Phacoemulsification with posterior chamber lens implant with use of VisionBlue right eye. ANESTHESIA: Local with MAC. DESCRIPTION OF PROCEDURE: The patient's dilating and anesthetic drops were applied in the holding room and the Honan balloon cuff applied for about 10-15 minutes. The patient was then brought to the operating room and the right eye was prepped and draped in the usual sterile manner for an intraocular procedure. A lid speculum was placed between the eyelids and the operating microscope brought into position and the eye was first observed. It was noted there was significant nuclear and cortical spoking cataract, which was going to make the capsulorrhexis difficult. I decided to use VisionBlue as an accessory. A paracentesis incision was made superior temporally and phenylid was injected into the anterior chamber, followed by an injection of air and a Viscoat plug. VisionBlue was then infiltrated over the anterior lens capsule and allowed to stain the capsule. The air was then displaced with Viscoat and the 2.4 mm incision was made temporally. I was then able to perform the capsulorrhexis with a bent needle and forceps without difficulty. The lens nucleus was hydrodissected and it was then phacoemulsified without difficulty with the phaco handpiece. The remaining cortex was removed with the I/A handpiece. Provisc was then used to insufflate the bag and a posterior chamber lens placed in this bag without difficulty. Provisc was then aspirated with the I/A handpiece and the temporal wound was hydrated and the eye pressurized. The wound was checked for leaks and there were none. The speculum and drape were removed and Maxitrol ointment instilled in the conjunctival sac and the eye was shielded. The patient was taken to the recovery room in satisfactory condition. There were no complications. I will see the patient Tuesday in my office. K GATITO VANN MD DR: ONOFRE/shira JOB#: [id number] / [id number]
== END 2019-10-26 15:05 | disposition home or self-care (01) ==
LOC: SURG 10:58
PROVIDERS: ATTEND Ophthalmology
DX: H25.811 Combined forms of age-related cataract, right eye (principal); E78.00 Pure hypercholesterolemia, unspecified; E11.9 Type 2 diabetes mellitus without complications; Z98.42 Cataract extraction status, left eye; Z98.890 Other specified postprocedural states; Z79.84 Long term (current) use of oral hypoglycemic drugs; Z96.1 Presence of intraocular lens
CPT/HCPCS: 66982; C1780; J0171

== ENCOUNTER → 2020-03-14 | Outpatient (CLI) | payer OTHER ==
[~2020-03-14] MED LIST changes: -CIPROFLOXACIN 0.3% OPHTH SOLUTION 5ML BOTTLE. OD ONE; -HYDROmorphone 2 MG/ML VIAL IV PRN; -IV RINGERS,LACTATED 1000ML 1,000 ML IV SCH; -LIDOCAINE 2% JELLY 6ML IN APPLICATOR. MM ONE; -MORPHINE SULFATE 2 MG/ML VIAL. IV PRN; -ONDANSETRON PF 4 MG/2 ML VIAL. IV PRN; -PROCHLORPERAZINE 10 MG/2 ML VIAL. IV PRN; -PROPARACAINE 0.5% OPHTH SOLUTION 15ML BOTTLE. OD ONE; -fentaNYL PF VIAL 100 MCG/2 ML VIAL IV PRN
[2020-03-14 10:17] LABS: HEMATOCRIT 40.9 % (36.0-47.0); HEMOGLOBIN 13.5 g/dL (12.0-15.5); RED BLOOD COUNT 4.92 x10^6/uL (3.50-5.40); RED CELL DISTRIBUTION WIDTH 15.6 % (11.5-14.5); WHITE BLOOD COUNT 6.3 x10^3/uL (4.0-11.0)
[2020-03-14 10:37] LABS: ALBUMIN 3.7 g/dL (3.4-5.0); CALCIUM 9.3 mg/dL (8.5-10.1); CREATININE 0.9 mg/dL (0.6-1.0); GFR 62.8; POTASSIUM 4.5 mmol/L (3.5-5.1); TOTAL BILIRUBIN 0.4 mg/dL (0.2-1.0); TOTAL PROTEIN 7.4 g/dL (6.4-8.2)
[2020-03-15 00:07] LABS: HEMOGLOBIN A1C 5.9 % (4.8-5.6)
== END ==
LOC: LAB 09:48
DX: Z12.11 Encounter for screening for malignant neoplasm of colon (principal); Z00.00 Encounter for general adult medical examination without abnormal findings; E78.5 Hyperlipidemia, unspecified; R73.03 Prediabetes
CPT/HCPCS: 36415; 80053; 80061; 83036; 83721; 84443; 85027

== ENCOUNTER → 2020-03-24 | Outpatient (CLI) | payer OTHER ==
--- NOTE | 2020-03-27 16:30 | RAD ---
EXAMINATION: Bilateral screening mammogram, 03/24/2020 9:30 AM CLINICAL INDICATION: 63-year-old woman presenting for screening mammogram. COMPARISON: Screening mammogram 01/08/2019 TECHNIQUE: Digital bilateral full-field CC and MLO views, and CC and MLO tomosynthesis views of the breasts were obtained. CAD was utilized. FINDINGS: The breasts contain scattered areas of fibroglandular density. There is no mass, suspicious calcification, or architectural distortion. IMPRESSION: 1. No mammographic evidence of malignancy. 2. BI-RADS 1: Negative. 3. Routine annual screening mammogram is recommended in 1 year. The patient will receive a reminder letter by mail when she is due for her next exam. Electronically signed by: Leah Freire MD (03/27/2020 4:26 PM) [id number]
== END | disposition home or self-care (01) ==
LOC: MAMMO 09:15
PROVIDERS: ATTEND Nurse Practitioner Family
DX: Z12.31 Encounter for screening mammogram for malignant neoplasm of breast (principal)
CPT/HCPCS: 77063; 77067

== ENCOUNTER → 2020-03-28 | Outpatient (CLI) | payer OTHER ==
--- NOTE | 2020-03-28 12:22 | RAD ---
EXAM: MRI cervical spine without contrast DATE: 03/28/2020 INDICATION: Cervical radiculopathy COMPARISON: None TECHNIQUE: Multiplanar, multisequence imaging of the cervical spine without contrast. FINDINGS: The cervical spine is normal in alignment. No acute fracture. Marrow signal is normal. There is mild disc desiccation throughout the cervical spine without height loss. The cervical cord is normal in signal and caliber. Prevertebral soft tissue and visualized portion of the posterior fossa are normal. Segmental analysis: C2-C3: No disc herniation or canal or foraminal narrowing. No facet arthrosis. C3-C4: Trace broad-based disc bulge slightly indents the ventral CSF space.. No canal or foraminal narrowing. No facet arthrosis. C4-C5: Small disc osteophyte complex slightly indents the ventral CSF space. No canal or foraminal narrowing. No facet arthrosis. C5-C6: Small disc osteophyte complex slightly indents the ventral CSF space. No canal narrowing. Mild right and mild to moderate left foraminal narrowing. No facet arthrosis. C6-C7: Trace broad-based disc bulge slightly indents the ventral CSF space. No canal or foraminal narrowing. No facet arthrosis. C7-T1: No disc herniation or canal or foraminal narrowing. IMPRESSION:Very mild degenerative disc disease. Mild right and dott-kj-dsxakajv left foraminal narrowing at C5-C6. No canal stenosis. Electronically signed by: Leah Freire MD (03/28/2020 12:19 PM) [id number]
== END | disposition home or self-care (01) ==
LOC: MRI 10:19
PROVIDERS: ATTEND Nurse Practitioner Family
DX: M50.11 Cervical disc disorder with radiculopathy, high cervical region (principal); M25.78 Osteophyte, vertebrae; M48.02 Spinal stenosis, cervical region
CPT/HCPCS: 72141

== ENCOUNTER → 2020-04-14 | Outpatient (CLI) | payer OTHER ==
[~2020-04-14] MED LIST changes: +MULT-445 PO; -MULT1TAB52 PO
--- NOTE | 2020-04-14 13:16 | KCIC ---
Bone Densitometry History: Reason: MENOPAUSAL, OSTEOPOROSIS SCREENING / Spl. Instructions: / History: Findings: Bone Densitometry was performed with dual photon absorption of the lumbar spine and left proximal femur. Lumbar Spine: Bone density is 0.659 g/cm2 for L1-L4. T-score is -3.5. Z-score is -1.7. Left total femur: Bone density is 0.575 g/cm2. T-score is -3.0. Z-score is -1.8. IMPRESSION: There is osteoporosis of the lumbar spine and the left hip. World Health Organization definition of osteoporosis and osteopenia for women: normal equals T score at or above -1.0 standard deviations; osteopenia equals T score between -1.0 and -2.5 standard deviations; osteoporosis equals T score at or below -2.5 standard deviations. Electronically signed by: Emory Mclain MD (04/14/2020 1:13 PM) [email or web address]
== END | disposition home or self-care (01) ==
LOC: KCIC DEXA 11:01
PROVIDERS: ATTEND Nurse Practitioner Family
DX: M81.0 Age-related osteoporosis without current pathological fracture (principal); Z78.0 Asymptomatic menopausal state
CPT/HCPCS: 77080

== ENCOUNTER → 2020-04-18 | Outpatient (CLI) | payer OTHER ==
--- NOTE | 2020-04-18 13:33 | RAD ---
DOPPLER CAROTID BILAT History: Reason: Asymptomatic Bilateral Carotid Artery Stenosis / Spl. Instructions: / History: Multiple grayscale, color, and duplex spectral analysis waveform sonographic images were acquired of the carotid, subclavian, and vertebral arteries. Comparison: None Findings: RIGHT SIDE: Peak systolic flow velocity of the distal CCA is 86 cm/sec. Peak systolic flow velocity of the ICA is 95 cm/sec. The ICA/CCA ratio is 1.1. Peak end diastolic flow velocity of the ICA is 33 cm/sec. The peak systolic velocity of the ECA is 90 cm/sec. LEFT SIDE: Peak systolic flow velocity of the distal CCA is 95 cm/sec. Peak systolic flow velocity of the ICA is 96 cm/sec. The ICA/CCA ratio is 1.0. Peak end diastolic flow velocity of the ICA is 28 cm/sec. Peak systolic flow velocity of the ECA is 89 cm/sec. Vertebral arteries: Bilateral vertebral arteries demonstrate antegrade flow. Impression: There is no evidence of a hemodynamically significant stenosis. PQRS Compliance Statement - Stenosis calculations for carotid ultrasound studies are derived from validated velocity criteria which are known to correlate with the NASCET methodology. Electronically signed by: Ladarius Russo MD (04/18/2020 1:30 PM) [id number]
== END | disposition home or self-care (01) ==
LOC: US 11:30
PROVIDERS: ATTEND Registered Nurse Medical-Surgical
DX: I65.23 Occlusion and stenosis of bilateral carotid arteries (principal)
CPT/HCPCS: 93880